=== PATIENT | male | born 1970 | race Caucasian/White ===

== ENCOUNTER 2020-08-12 07:34 | Inpatient (IN) ==
[2020-08-12] MEDS ORDERED: LR 1000 ML IV 1,000 ML IV ONE (07:41)
[2020-08-12] MEDS ORDERED: ANCEF 1 GRAM IV PREMIX* 2 G/100 ML BAG IV ONE (07:42)
[2020-08-12] MEDS ORDERED: DECADRON INJ ONE ×2 (07:52→08:45)
[2020-08-12] MEDS ORDERED: TORADOL 30 MG VIAL ONE ×3 (07:52→08:45)
[2020-08-12] MEDS ORDERED: FENTANYL INJ 100 mcg ONE ×2 (07:52→09:16)
[2020-08-12] MEDS ORDERED: NS 1000 ML 1,000 ML ONE ×3 (07:53→12:24)
[2020-08-12] MEDS ORDERED: ZEMURON 50 MG VIAL ONE (07:53)
[2020-08-12] MEDS ORDERED: OFIRMEV IV 1000 MG VIAL 1,000 MG/100 ML VIAL IV ONE (07:53)
[2020-08-12 08:11] VITALS: BMI 50.1
[2020-08-12] MEDS ORDERED: POLYMYXIN B SULFATE ONE (08:12)
[2020-08-12] MEDS ORDERED: ZOFRAN INJ 4 MG VIAL ONE (08:45)
[2020-08-12] MEDS ORDERED: XYLOCAINE 1 % (PLAIN) ONE (08:45)
[2020-08-12] MEDS ORDERED: NEO-SYNEPHRINE INJ ONE (08:45)
[2020-08-12] MEDS ORDERED: ULTANE GAS IN ONE (08:45)
[2020-08-12] MEDS ORDERED: QUELICIN (OR ANECTINE) ONE (08:45)
[2020-08-12] MEDS ORDERED: ROBINUL ONE (08:45)
[2020-08-12] MEDS ORDERED: NORCURON INJ 10 MG VIAL ONE (08:45)
[2020-08-12] MEDS ORDERED: VERSED ONE (08:45)
[2020-08-12] MEDS ORDERED: EPHEDRINE SULFATE INJ ONE (08:45)
[2020-08-12] MEDS ORDERED: DIPRIVAN VIAL ONE (08:45)
[2020-08-12] MEDS ORDERED: NEOSTIGMINE INJ ONE (08:45)
[2020-08-12] MEDS ORDERED: NS 100 ML IV 100 ML IV ONE (09:38)
[2020-08-12] MEDS ORDERED: ZOSYN VIAL 3.375 GRAMS IV ONE (09:38)
[2020-08-12] MEDS ORDERED: DILAUDID INJ IVP PRN ×2 (12:10→12:19)
[2020-08-12] MEDS: D5 1/2 NS 1000 ML 1,000 ML IV SCH ×2 (12:11→19:41)
[2020-08-12] MEDS ORDERED: PHENERGAN INJ 25 MG IM PRN (12:19)
[2020-08-12] MEDS ORDERED: REGLAN INJ 10 MG VIAL IVP PRN (12:19)
[2020-08-12] MEDS ORDERED: ZOFRAN INJ 4 MG VIAL IVP PRN ×2 (12:19→14:30)
[2020-08-12] MEDS ORDERED: BENADRYL INJ 50 MG VIAL IVP PRN (12:19)
[2020-08-12 12:59] LABS: ALANINE AMINOTRANSFERASE 46 Units/L (12-78); ALBUMIN 3.6 g/dL (3.4-5.0); ALKALINE PHOSPHATASE 59 Units/L (46-116); ASPARTATE AMINO TRANSFERASE 26 Units/L (15-37); BLOOD UREA NITROGEN 26 mg/dL (7-18); CALCIUM 8.6 mg/dL (8.5-10.1); CARBON DIOXIDE 24.3 mmol/L (21-32); CHLORIDE 101 mmol/L (98-107); COR NA(FOR HYPERGLY) 140 mmol/L (136-145); CREATININE 1.45 mg/dL (0.70-1.30); SODIUM 137 mmol/L (136-145); TOTAL PROTEIN 6.9 g/dL (6.4-8.2); eGFR NON BLACK RACES 55 (>60)
[2020-08-12] MEDS ORDERED: NS 500 ML IV 500 ML IV ONE (13:00)
[2020-08-12] MEDS ORDERED: ALBUMIN HUMAN 25%- 100 ML 100 ML IV ONE (13:00)
[2020-08-12] MEDS ORDERED: MORPHINE SULFATE INJ 2 MG INJ ONE (13:17)
[2020-08-12] MEDS ORDERED: MORPHINE SULFATE INJ 2 MG INJ IVP ONE (13:21)
[2020-08-12] MEDS ORDERED: MORPHINE SULFATE INJ 2 MG INJ IVP PRN (13:58)
[2020-08-12] MEDS ORDERED: DOPAMINE IV PREMIX 400 MG/250 ML 400 MG/250 ML BAG IV PRN (14:30)
[2020-08-12] MEDS: ANCEF VIAL 1 GRAM IVP SCH ×2 (15:21→22:10)
[2020-08-12 15:46] LABS: BASOPHILS # (AUTO) 0.1 X10^3/uL (0.0-0.1); BASOPHILS % (AUTO) 0.7 % (0.2-1.0); EOSINOPHILS # (AUTO) 0.1 x10^3/uL (0.0-0.2); EOSINOPHILS % (AUTO) 0.4 % (0.9-2.9); HEMATOCRIT 39.3 % (42.0-54.0); HEMOGLOBIN 12.6 g/dL (13.5-18.0); LYMPHOCYTES # (AUTO) 1.1 X10^3/uL (1.3-2.9); LYMPHOCYTES % (AUTO) 7.3 % (21.0-51.0); MEAN CORPUSCULAR HEMOGLOBIN 27.8 pg (27.0-34.0); MEAN CORPUSCULAR HGB CONC 32.2 g/dL (33.0-35.0); MEAN CORPUSCULAR VOLUME 86.5 fL (80.0-100.0); MEAN PLATELET VOLUME 8.2 fL (7.4-11.0); MONOCYTES # (AUTO) 0.2 x10^3/uL (0.3-0.8); MONOCYTES % (AUTO) 1.6 % (0.0-13.0); PLATELET COUNT 374 X10^3/uL (150.0-450.0); RED BLOOD COUNT 4.54 X10^6/uL (4.7-6.0); RED CELL DISTRIBUTION WIDTH 13.6 % (11.6-16.5); WHITE BLOOD COUNT 15.6 X10^3/uL (3.6-10.0)
[2020-08-12] MEDS: DILAUDID INJ IVP PRN (20:33)
[2020-08-13] MEDS: D5 1/2 NS 1000 ML 1,000 ML IV SCH ×6 (02:16→20:47)
[2020-08-13] MEDS: ANCEF VIAL 1 GRAM IVP SCH ×3 (05:30→22:16)
[2020-08-13 06:14] LABS: BASOPHILS # (AUTO) 0.1 X10^3/uL (0.0-0.1); BASOPHILS % (AUTO) 0.5 % (0.2-1.0); EOSINOPHILS % (AUTO) 0.1 % (0.9-2.9); HEMATOCRIT 34.2 % (42.0-54.0); HEMOGLOBIN 11.3 g/dL (13.5-18.0); LYMPHOCYTES # (AUTO) 1.1 X10^3/uL (1.3-2.9); LYMPHOCYTES % (AUTO) 8.9 % (21.0-51.0); MEAN CORPUSCULAR HEMOGLOBIN 28.1 pg (27.0-34.0); MEAN CORPUSCULAR VOLUME 85.3 fL (80.0-100.0); MEAN PLATELET VOLUME 7.6 fL (7.4-11.0); MONOCYTES # (AUTO) 0.8 x10^3/uL (0.3-0.8); MONOCYTES % (AUTO) 6.9 % (0.0-13.0); NEUTROPHILS # (AUTO) 10.1 x10^3/uL (2.2-4.8); NEUTROPHILS % (AUTO) 83.6 % (42.0-75.0); PLATELET COUNT 283 X10^3/uL (150.0-450.0); RED BLOOD COUNT 4.01 X10^6/uL (4.7-6.0); RED CELL DISTRIBUTION WIDTH 13.6 % (11.6-16.5); WHITE BLOOD COUNT 12.1 X10^3/uL (3.6-10.0)
--- NOTE | 2020-08-13 06:17 | RAD ---
HISTORYDyspneaSTUDYChest AP [id number] is a nasogastric tube present. Its tip is not visible. Over penetrated chest and upper abdomen film was may be required to evaluate the location of the nasogastr ic tube tip. Heart size is accentuated by hypo inflation. It is likely within normal limits. The lung s are clear. No pleural effusions are identified. Bony thorax is unremarkable.IMPRESSIONLungs hypoinf lated but free of acute infiltratesNasogastric tube tip not visualized. Overpenetrated chest x-ray an d upper abdomen may be required to assess the location of the nasogastric tube tip.Electronically sig linsey by: RUPA SHARIF (Aug 13, 2020 06:15:33)
[2020-08-13 06:34] LABS: ALANINE AMINOTRANSFERASE 39 Units/L (12-78); ALBUMIN 3.1 g/dL (3.4-5.0); ALKALINE PHOSPHATASE 48 Units/L (46-116); ASPARTATE AMINO TRANSFERASE 21 Units/L (15-37); BLOOD UREA NITROGEN 27 mg/dL (7-18); CALCIUM 8.1 mg/dL (8.5-10.1); CARBON DIOXIDE 25.2 mmol/L (21-32); CHLORIDE 104 mmol/L (98-107); COR NA(FOR HYPERGLY) 140 mmol/L (136-145); CREATININE 1.18 mg/dL (0.70-1.30); SODIUM 139 mmol/L (136-145); TOTAL PROTEIN 6.3 g/dL (6.4-8.2); eGFR NON BLACK RACES > 60 (>60)
[2020-08-13 06:35] LABS: COR CA(FOR HYPOALB) 8.8 mg/dL (8.5-10.1)
[2020-08-13] MEDS: DILAUDID INJ IVP PRN ×4 (07:01→19:03)
[2020-08-13] MEDS: LOVENOX INJ 40 MG SYR SC SCH (09:32)
[2020-08-13] MEDS: PROTONIX INJ 40 MG VIAL IVP SCH (09:33)
--- NOTE | 2020-08-13 10:12 | DR.PROGNOT ---
Hospital Progress Notes - Progress Note for Day of: Progress Note Date: 08/13/20 - Chief Complaint Chief Complaint: having incisional pain . no nausea or vomiting . BP is stable . good urine out put . afebrile today . - Past Medical Family Social History Past Med/Fam/Surg Hx: No changes since H&P Allergies: Allergies No Known Drug Allergies Allergy (Verified 08/23/19 10:17) - Review Of Systems ROS: No change since H&P - Vital Signs Vital Signs: Temperature 98.5 F Pulse Rate [Left Radial] 91 Pulse Rate 96 Respiratory Rate 20 Blood Pressure [Left Arm] 131/64 Blood Pressure 128/58 O2 Sat by Pulse Oximetry 90 - Physical Exam Oriented: Normal Eyes: Normal Ear: Normal Nose: Normal Throat: Normal Cardiovascular: Normal : Normal GI:Auscultation: Decreased GI:Palpation: Normal GI: Tenderness: Diffuse (soft abdomen . with diffuse tenderness .. dressing intact ..) Mood Description: Calm Speech Pattern: Clear, Appropriate - Laboratory and Diagnostics Result Diagrams: 08/13/20 05:21 08/13/20 05:21 Labs: Laboratory WBC 12.1 X10^3/uL (3.6-10.0) H 08/13/20 05:21 RBC 4.01 X10^6/uL (4.7-6.0) L 08/13/20 05:21 Hgb 11.3 g/dL (13.5-18.0) L 08/13/20 05:21 Hct 34.2 % (42.0-54.0) L 08/13/20 05:21 MCV 85.3 fL (80.0-100.0) 08/13/20 05:21 MCH 28.1 pg (27.0-34.0) 08/13/20 05:21 MCHC 33.0 g/dL (33.0-35.0) 08/13/20 05:21 RDW 13.6 % (11.6-16.5) 08/13/20 05:21 Plt Count 283 X10^3/uL (150.0-450.0) 08/13/20 05:21 MPV 7.6 fL (7.4-11.0) 08/13/20 05:21 Neut % (Auto) 83.6 % (42.0-75.0) H 08/13/20 05:21 Lymph % (Auto) 8.9 % (21.0-51.0) L 08/13/20 05:21 [place] % (Auto) 6.9 % (0.0-13.0) 08/13/20 05:21 Eos % (Auto) 0.1 % (0.9-2.9) L 08/13/20 05:21 Baso % (Auto) 0.5 % (0.2-1.0) 08/13/20 05:21 Neut # (Auto) 10.1 x10^3/uL (2.2-4.8) H 08/13/20 05:21 Lymph # (Auto) 1.1 X10^3/uL (1.3-2.9) L 08/13/20 05:21 [place] # (Auto) 0.8 x10^3/uL (0.3-0.8) 08/13/20 05:21 Eos # (Auto) 0.0 x10^3/uL (0.0-0.2) 08/13/20 05:21 Baso # (Auto) 0.1 X10^3/uL (0.0-0.1) 08/13/20 05:21 Absolute Nucleated RBC 0.0 /100WBC 08/13/20 05:21 Sodium 139 mmol/L (136-145) 08/13/20 05:21 Corrected Sodium 140 mmol/L (136-145) 08/13/20 05:21 Potassium 4.4 mmol/L (3.5-5.1) 08/13/20 05:21 Chloride 104 mmol/L (98-107) 08/13/20 05:21 Carbon Dioxide 25.2 mmol/L (21-32) 08/13/20 05:21 BUN 27 mg/dL (7-18) H 08/13/20 05:21 Creatinine 1.18 mg/dL (0.70-1.30) 08/13/20 05:21 Est GFR (MDRD) Af Amer > 60 (>60) 08/13/20 05:21 Est GFR (MDRD) Non-Af > 60 (>60) 08/13/20 05:21 Glucose 136 mg/dL (65-99) H 08/13/20 05:21 Calcium 8.1 mg/dL (8.5-10.1) L 08/13/20 05:21 Corrected Calcium 8.8 mg/dL (8.5-10.1) 08/13/20 05:21 Total Bilirubin 0.30 mg/dL (0.2-1.0) 08/13/20 05:21 AST 21 Units/L (15-37) 08/13/20 05:21 ALT 39 Units/L (12-78) 08/13/20 05:21 Alkaline Phosphatase 48 Units/L (46-116) 08/13/20 05:21 Total Protein 6.3 g/dL (6.4-8.2) L 08/13/20 05:21 Albumin 3.1 g/dL (3.4-5.0) L 08/13/20 05:21 Globulin 3.2 g/dL (2.5-4.5) 08/13/20 05:21 Albumin/Globulin Ratio 1.0 Ratio (1.1-2.1) L 08/13/20 05:21 Tissue Pathology To follow 08/12/20 10:30 - Assessment and Plan 1: s/p laparotomy . lysis of adhesions , segmental small bowel resection . repair of incarcerated incisional hernias . morbid obesity . to d/c NGT and Abrams cath . only water . OOB , DVT prophylaxis .
[2020-08-13] MEDS ORDERED: NS 1000 ML 1,000 ML IV ONE (13:44)
[2020-08-13] MEDS: ZESTRIL TAB 10 MG PO SCH (14:38)
[2020-08-14] MEDS: DILAUDID INJ IVP PRN ×5 (01:17→21:03)
[2020-08-14] MEDS: D5 1/2 NS 1000 ML 1,000 ML IV SCH ×2 (01:26→05:10)
[2020-08-14 05:14] LABS: BASOPHILS % (AUTO) 0.5 % (0.2-1.0); EOSINOPHILS # (AUTO) 0.3 x10^3/uL (0.0-0.2); HEMATOCRIT 32.7 % (42.0-54.0); LYMPHOCYTES # (AUTO) 0.9 X10^3/uL (1.3-2.9); LYMPHOCYTES % (AUTO) 9.1 % (21.0-51.0); MEAN CORPUSCULAR HEMOGLOBIN 28.9 pg (27.0-34.0); MEAN CORPUSCULAR HGB CONC 33.6 g/dL (33.0-35.0); MEAN CORPUSCULAR VOLUME 85.9 fL (80.0-100.0); MEAN PLATELET VOLUME 7.5 fL (7.4-11.0); MONOCYTES # (AUTO) 0.6 x10^3/uL (0.3-0.8); MONOCYTES % (AUTO) 6.6 % (0.0-13.0); NEUTROPHILS # (AUTO) 7.9 x10^3/uL (2.2-4.8); NEUTROPHILS % (AUTO) 80.8 % (42.0-75.0); PLATELET COUNT 293 X10^3/uL (150.0-450.0); RED CELL DISTRIBUTION WIDTH 13.7 % (11.6-16.5); WHITE BLOOD COUNT 9.7 X10^3/uL (3.6-10.0)
[2020-08-14 05:29] LABS: ALANINE AMINOTRANSFERASE 34 Units/L (12-78); ALBUMIN 2.9 g/dL (3.4-5.0); ALKALINE PHOSPHATASE 53 Units/L (46-116); ASPARTATE AMINO TRANSFERASE 16 Units/L (15-37); BLOOD UREA NITROGEN 19 mg/dL (7-18); CALCIUM 8.3 mg/dL (8.5-10.1); CARBON DIOXIDE 28.5 mmol/L (21-32); CHLORIDE 103 mmol/L (98-107); COR CA(FOR HYPOALB) 9.2 mg/dL (8.5-10.1); COR NA(FOR HYPERGLY) 141 mmol/L (136-145); CREATININE 0.87 mg/dL (0.70-1.30); SODIUM 140 mmol/L (136-145); TOTAL PROTEIN 6.3 g/dL (6.4-8.2); eGFR NON BLACK RACES > 60 (>60)
[2020-08-14] MEDS: ANCEF VIAL 1 GRAM IVP SCH ×3 (05:40→21:05)
[2020-08-14] MEDS: MILK OF MAGNESIA PO SCH (09:17)
[2020-08-14] MEDS: ZESTRIL TAB 10 MG PO SCH (09:17)
[2020-08-14] MEDS: PROTONIX INJ 40 MG VIAL IVP SCH (09:18)
[2020-08-14] MEDS: LOVENOX INJ 40 MG SYR SC SCH (09:26)
[2020-08-14] MEDS: LR 1000 ML IV 1,000 ML IV SCH ×3 (10:15→19:23)
[2020-08-14] MEDS: NORVASC TAB 5 MG PO SCH (10:15)
--- NOTE | 2020-08-14 14:41 | DR.PROGNOT ---
Hospital Progress Notes - Progress Note for Day of: Progress Note Date: 08/14/20 - Chief Complaint Chief Complaint: having incisional pain . no nausea or vomiting . BP is stable . good urine out put . afebrile today . - Past Medical Family Social History Past Med/Fam/Surg Hx: No changes since H&P Allergies: Allergies No Known Drug Allergies Allergy (Verified 08/23/19 10:17) - Review Of Systems ROS: No change since H&P - Vital Signs Vital Signs: Temperature 97.1 F Pulse Rate [Left Radial] 78 Pulse Rate 96 Respiratory Rate 20 Blood Pressure [Left Arm] 168/78 Blood Pressure 128/58 O2 Sat by Pulse Oximetry 100 - Physical Exam Oriented: Normal Eyes: Normal Ear: Normal Nose: Normal Throat: Normal Cardiovascular: Normal : Normal GI:Auscultation: Decreased GI:Palpation: Normal GI: Tenderness: Diffuse (soft abdomen . with diffuse tenderness .. dressing intact ..) Mood Description: Calm Speech Pattern: Clear, Appropriate - Laboratory and Diagnostics Result Diagrams: 08/14/20 04:00 08/14/20 04:00 Labs: Laboratory WBC 9.7 X10^3/uL (3.6-10.0) 08/14/20 04:00 RBC 3.80 X10^6/uL (4.7-6.0) L 08/14/20 04:00 Hgb 11.0 g/dL (13.5-18.0) L 08/14/20 04:00 Hct 32.7 % (42.0-54.0) L 08/14/20 04:00 MCV 85.9 fL (80.0-100.0) 08/14/20 04:00 MCH 28.9 pg (27.0-34.0) 08/14/20 04:00 MCHC 33.6 g/dL (33.0-35.0) 08/14/20 04:00 RDW 13.7 % (11.6-16.5) 08/14/20 04:00 Plt Count 293 X10^3/uL (150.0-450.0) 08/14/20 04:00 MPV 7.5 fL (7.4-11.0) 08/14/20 04:00 Neut % (Auto) 80.8 % (42.0-75.0) H 08/14/20 04:00 Lymph % (Auto) 9.1 % (21.0-51.0) L 08/14/20 04:00 [place] % (Auto) 6.6 % (0.0-13.0) 08/14/20 04:00 Eos % (Auto) 3.0 % (0.9-2.9) H 08/14/20 04:00 Baso % (Auto) 0.5 % (0.2-1.0) 08/14/20 04:00 Neut # (Auto) 7.9 x10^3/uL (2.2-4.8) H 08/14/20 04:00 Lymph # (Auto) 0.9 X10^3/uL (1.3-2.9) L 08/14/20 04:00 [place] # (Auto) 0.6 x10^3/uL (0.3-0.8) 08/14/20 04:00 Eos # (Auto) 0.3 x10^3/uL (0.0-0.2) H 08/14/20 04:00 Baso # (Auto) 0.0 X10^3/uL (0.0-0.1) 08/14/20 04:00 Absolute Nucleated RBC 0.0 /100WBC 08/14/20 04:00 Sodium 140 mmol/L (136-145) 08/14/20 04:00 Corrected Sodium 141 mmol/L (136-145) 08/14/20 04:00 Potassium 4.2 mmol/L (3.5-5.1) 08/14/20 04:00 Chloride 103 mmol/L (98-107) 08/14/20 04:00 Carbon Dioxide 28.5 mmol/L (21-32) 08/14/20 04:00 BUN 19 mg/dL (7-18) H 08/14/20 04:00 Creatinine 0.87 mg/dL (0.70-1.30) 08/14/20 04:00 Est GFR (MDRD) Af Amer > 60 (>60) 08/14/20 04:00 Est GFR (MDRD) Non-Af > 60 (>60) 08/14/20 04:00 Glucose 135 mg/dL (65-99) H 08/14/20 04:00 Calcium 8.3 mg/dL (8.5-10.1) L 08/14/20 04:00 Corrected Calcium 9.2 mg/dL (8.5-10.1) 08/14/20 04:00 Total Bilirubin 0.50 mg/dL (0.2-1.0) 08/14/20 04:00 AST 16 Units/L (15-37) 08/14/20 04:00 ALT 34 Units/L (12-78) 08/14/20 04:00 Alkaline Phosphatase 53 Units/L (46-116) 08/14/20 04:00 Total Protein 6.3 g/dL (6.4-8.2) L 08/14/20 04:00 Albumin 2.9 g/dL (3.4-5.0) L 08/14/20 04:00 Globulin 3.4 g/dL (2.5-4.5) 08/14/20 04:00 Albumin/Globulin Ratio 0.9 Ratio (1.1-2.1) L 08/14/20 04:00 Tissue Pathology To follow 08/12/20 10:30 - Assessment and Plan 1: s/p laparotomy . lysis of adhesions , segmental small bowel resection . repair of incarcerated incisional hernias . morbid obesity . toadvance diet . ambulate .
[2020-08-14] MEDS: COLACE CAP 100 MG PO SCH (21:00)
[2020-08-15] MEDS: LR 1000 ML IV 1,000 ML IV SCH ×3 (03:25→18:23)
[2020-08-15] MEDS: DILAUDID INJ IVP PRN ×2 (03:25→09:18)
[2020-08-15] MEDS: ANCEF VIAL 1 GRAM IVP SCH (05:11)
[2020-08-15 06:33] LABS: BASOPHILS % (AUTO) 0.6 % (0.2-1.0); EOSINOPHILS # (AUTO) 0.3 x10^3/uL (0.0-0.2); EOSINOPHILS % (AUTO) 3.6 % (0.9-2.9); HEMATOCRIT 30.6 % (42.0-54.0); HEMOGLOBIN 10.4 g/dL (13.5-18.0); LYMPHOCYTES # (AUTO) 0.9 X10^3/uL (1.3-2.9); LYMPHOCYTES % (AUTO) 11.8 % (21.0-51.0); MEAN CORPUSCULAR HEMOGLOBIN 29.1 pg (27.0-34.0); MEAN CORPUSCULAR VOLUME 85.7 fL (80.0-100.0); MEAN PLATELET VOLUME 7.4 fL (7.4-11.0); MONOCYTES # (AUTO) 0.5 x10^3/uL (0.3-0.8); MONOCYTES % (AUTO) 6.7 % (0.0-13.0); NEUTROPHILS # (AUTO) 6.2 x10^3/uL (2.2-4.8); NEUTROPHILS % (AUTO) 77.3 % (42.0-75.0); PLATELET COUNT 282 X10^3/uL (150.0-450.0); RED BLOOD COUNT 3.57 X10^6/uL (4.7-6.0); RED CELL DISTRIBUTION WIDTH 13.5 % (11.6-16.5)
[2020-08-15 06:48] LABS: ALANINE AMINOTRANSFERASE 35 Units/L (12-78); ALBUMIN 2.7 g/dL (3.4-5.0); ALKALINE PHOSPHATASE 52 Units/L (46-116); ASPARTATE AMINO TRANSFERASE 21 Units/L (15-37); BLOOD UREA NITROGEN 12 mg/dL (7-18); CALCIUM 8.8 mg/dL (8.5-10.1); CARBON DIOXIDE 30.3 mmol/L (21-32); CHLORIDE 100 mmol/L (98-107); COR CA(FOR HYPOALB) 9.8 mg/dL (8.5-10.1); COR NA(FOR HYPERGLY) 139 mmol/L (136-145); CREATININE 0.88 mg/dL (0.70-1.30); SODIUM 137 mmol/L (136-145); TOTAL PROTEIN 6.2 g/dL (6.4-8.2); eGFR NON BLACK RACES > 60 (>60)
[2020-08-15] MEDS ORDERED: LINZESS PO SCH (09:00)
[2020-08-15] MEDS: LOVENOX INJ 40 MG SYR SC SCH (09:17)
[2020-08-15] MEDS: PROTONIX INJ 40 MG VIAL IVP SCH (09:18)
[2020-08-15] MEDS: ZESTRIL TAB 10 MG PO SCH (09:19)
[2020-08-15] MEDS: MILK OF MAGNESIA PO SCH (09:19)
[2020-08-15] MEDS: NORVASC TAB 5 MG PO SCH (09:20)
--- NOTE | 2020-08-15 11:47 | PCM.PROG ---
Progress Note Progress Note for Day of Date of Exam: 08/15/20 Subjective Subjective: Pt is a 49 year old male admitted for incarcerated incisional hernia s/p laparotomy, lysis of adhesions, segmental small bowel resection, repair of incarcerated hernia. Pt is followed by general surgery. This morning he is resting comfortably in bed, no acute events overnight. Labs/imaging: Wbc 8.0, Hgb 10.4, Plt 282, Na 139, K 4.1, Creatinine 0.88, Glucose 190. Pt is recovering well. Will continue to advance diet as tolerated. Follow up Dr Bingham's recommendations and plans for when patient is able to be discharged. Continue to monitor and follow up labs in the morning. Past Medical Family Social History Past Med/Fam/Surg Hx: No changes since H&P Allergies: Allergies No Known Drug Allergies Allergy (Verified 08/23/19 10:17) Review of Systems ROS: No change since H&P Vital Signs and I&O's Vital Signs: Temperature 98.7 F Pulse Rate [Left Radial] 89 Pulse Rate 103 Respiratory Rate 20 Blood Pressure [Left Arm] 149/69 Blood Pressure 128/58 O2 Sat by Pulse Oximetry 99 Intake and Output: Intake & Output 08/12/20 08/13/20 08/14/20 08/15/20 23:59 23:59 23:59 23:59 Intake Total 3361 / 3361 0 / 0 6352 / 6352 1440 / 1440 Output Total 1900 / 1900 1800 / 1800 2400 / 2400 1200 / 1200 Balance 1461 / 1461 -1800 / -1800 3952 / 3952 240 / 240 Physical Exam Oriented: Normal Eyes: Normal Ear: Normal Nose: Normal Throat: Normal Respiratory: Normal Cardiovascular: Normal : Normal Auscultation: Bowel Sounds: Decreased Tenderness: Diffuse (soft abdomen . with diffuse tenderness .. dressing intact ..) Mood Description: Calm Speech Pattern: Clear and Appropriate Laboratory and Diagnostics Result Diagrams: 08/15/20 06:06 08/15/20 06:06 Labs: Laboratory WBC 8.0 X10^3/uL (3.6-10.0) 08/15/20 06:06 RBC 3.57 X10^6/uL (4.7-6.0) L 08/15/20 06:06 Hgb 10.4 g/dL (13.5-18.0) L 08/15/20 06:06 Hct 30.6 % (42.0-54.0) L 08/15/20 06:06 MCV 85.7 fL (80.0-100.0) 08/15/20 06:06 MCH 29.1 pg (27.0-34.0) 08/15/20 06:06 MCHC 34.0 g/dL (33.0-35.0) 08/15/20 06:06 RDW 13.5 % (11.6-16.5) 08/15/20 06:06 Plt Count 282 X10^3/uL (150.0-450.0) 08/15/20 06:06 MPV 7.4 fL (7.4-11.0) 08/15/20 06:06 Neut % (Auto) 77.3 % (42.0-75.0) H 08/15/20 06:06 Lymph % (Auto) 11.8 % (21.0-51.0) L 08/15/20 06:06 [place] % (Auto) 6.7 % (0.0-13.0) 08/15/20 06:06 Eos % (Auto) 3.6 % (0.9-2.9) H 08/15/20 06:06 Baso % (Auto) 0.6 % (0.2-1.0) 08/15/20 06:06 Neut # (Auto) 6.2 x10^3/uL (2.2-4.8) H 08/15/20 06:06 Lymph # (Auto) 0.9 X10^3/uL (1.3-2.9) L 08/15/20 06:06 [place] # (Auto) 0.5 x10^3/uL (0.3-0.8) 08/15/20 06:06 Eos # (Auto) 0.3 x10^3/uL (0.0-0.2) H 08/15/20 06:06 Baso # (Auto) 0.0 X10^3/uL (0.0-0.1) 08/15/20 06:06 Absolute Nucleated RBC 0.0 /100WBC 08/15/20 06:06 Sodium 137 mmol/L (136-145) 08/15/20 06:06 Corrected Sodium 139 mmol/L (136-145) 08/15/20 06:06 Potassium 4.1 mmol/L (3.5-5.1) 08/15/20 06:06 Chloride 100 mmol/L (98-107) 08/15/20 06:06 Carbon Dioxide 30.3 mmol/L (21-32) 08/15/20 06:06 BUN 12 mg/dL (7-18) 08/15/20 06:06 Creatinine 0.88 mg/dL (0.70-1.30) 08/15/20 06:06 Est GFR (MDRD) Af Amer > 60 (>60) 08/15/20 06:06 Est GFR (MDRD) Non-Af > 60 (>60) 08/15/20 06:06 Glucose 190 mg/dL (65-99) H 08/15/20 06:06 Calcium 8.8 mg/dL (8.5-10.1) 08/15/20 06:06 Corrected Calcium 9.8 mg/dL (8.5-10.1) 08/15/20 06:06 Total Bilirubin 0.30 mg/dL (0.2-1.0) 08/15/20 06:06 AST 21 Units/L (15-37) 08/15/20 06:06 ALT 35 Units/L (12-78) 08/15/20 06:06 Alkaline Phosphatase 52 Units/L (46-116) 08/15/20 06:06 Total Protein 6.2 g/dL (6.4-8.2) L 08/15/20 06:06 Albumin 2.7 g/dL (3.4-5.0) L 08/15/20 06:06 Globulin 3.5 g/dL (2.5-4.5) 08/15/20 06:06 Albumin/Globulin Ratio 0.8 Ratio (1.1-2.1) L 08/15/20 06:06 Tissue Pathology To follow 08/12/20 10:30
--- NOTE | 2020-08-15 12:16 | DR.PROGNOT ---
Hospital Progress Notes - Progress Note for Day of: Progress Note Date: 08/15/20 - Chief Complaint Chief Complaint: tolerating diet well . no nausea or vomiting . BP is stable . good urine out put . afebrile today . dressong was changed , clean incision . no infection . - Past Medical Family Social History Past Med/Fam/Surg Hx: No changes since H&P Allergies: Allergies No Known Drug Allergies Allergy (Verified 08/23/19 10:17) - Review Of Systems ROS: No change since H&P - Vital Signs Vital Signs: Temperature 98.7 F Pulse Rate [Left Radial] 89 Pulse Rate 103 Respiratory Rate 20 Blood Pressure [Left Arm] 149/69 Blood Pressure 128/58 O2 Sat by Pulse Oximetry 99 - Physical Exam Oriented: Normal Eyes: Normal Ear: Normal Nose: Normal Throat: Normal Respiratory: Normal Cardiovascular: Normal : Normal GI:Auscultation: Decreased GI:Palpation: Normal GI: Tenderness: Diffuse (soft, flat abdomen . no wound infection . BS+) Mood Description: Calm Speech Pattern: Clear, Appropriate - Laboratory and Diagnostics Result Diagrams: 08/15/20 06:06 08/15/20 06:06 Labs: Laboratory WBC 8.0 X10^3/uL (3.6-10.0) 08/15/20 06:06 RBC 3.57 X10^6/uL (4.7-6.0) L 08/15/20 06:06 Hgb 10.4 g/dL (13.5-18.0) L 08/15/20 06:06 Hct 30.6 % (42.0-54.0) L 08/15/20 06:06 MCV 85.7 fL (80.0-100.0) 08/15/20 06:06 MCH 29.1 pg (27.0-34.0) 08/15/20 06:06 MCHC 34.0 g/dL (33.0-35.0) 08/15/20 06:06 RDW 13.5 % (11.6-16.5) 08/15/20 06:06 Plt Count 282 X10^3/uL (150.0-450.0) 08/15/20 06:06 MPV 7.4 fL (7.4-11.0) 08/15/20 06:06 Neut % (Auto) 77.3 % (42.0-75.0) H 08/15/20 06:06 Lymph % (Auto) 11.8 % (21.0-51.0) L 08/15/20 06:06 [place] % (Auto) 6.7 % (0.0-13.0) 08/15/20 06:06 Eos % (Auto) 3.6 % (0.9-2.9) H 08/15/20 06:06 Baso % (Auto) 0.6 % (0.2-1.0) 08/15/20 06:06 Neut # (Auto) 6.2 x10^3/uL (2.2-4.8) H 08/15/20 06:06 Lymph # (Auto) 0.9 X10^3/uL (1.3-2.9) L 08/15/20 06:06 [place] # (Auto) 0.5 x10^3/uL (0.3-0.8) 08/15/20 06:06 Eos # (Auto) 0.3 x10^3/uL (0.0-0.2) H 08/15/20 06:06 Baso # (Auto) 0.0 X10^3/uL (0.0-0.1) 08/15/20 06:06 Absolute Nucleated RBC 0.0 /100WBC 08/15/20 06:06 Sodium 137 mmol/L (136-145) 08/15/20 06:06 Corrected Sodium 139 mmol/L (136-145) 08/15/20 06:06 Potassium 4.1 mmol/L (3.5-5.1) 08/15/20 06:06 Chloride 100 mmol/L (98-107) 08/15/20 06:06 Carbon Dioxide 30.3 mmol/L (21-32) 08/15/20 06:06 BUN 12 mg/dL (7-18) 08/15/20 06:06 Creatinine 0.88 mg/dL (0.70-1.30) 08/15/20 06:06 Est GFR (MDRD) Af Amer > 60 (>60) 08/15/20 06:06 Est GFR (MDRD) Non-Af > 60 (>60) 08/15/20 06:06 Glucose 190 mg/dL (65-99) H 08/15/20 06:06 Calcium 8.8 mg/dL (8.5-10.1) 08/15/20 06:06 Corrected Calcium 9.8 mg/dL (8.5-10.1) 08/15/20 06:06 Total Bilirubin 0.30 mg/dL (0.2-1.0) 08/15/20 06:06 AST 21 Units/L (15-37) 08/15/20 06:06 ALT 35 Units/L (12-78) 08/15/20 06:06 Alkaline Phosphatase 52 Units/L (46-116) 08/15/20 06:06 Total Protein 6.2 g/dL (6.4-8.2) L 08/15/20 06:06 Albumin 2.7 g/dL (3.4-5.0) L 08/15/20 06:06 Globulin 3.5 g/dL (2.5-4.5) 08/15/20 06:06 Albumin/Globulin Ratio 0.8 Ratio (1.1-2.1) L 08/15/20 06:06 Tissue Pathology To follow 08/12/20 10:30 - Assessment and Plan 1: s/p laparotomy . lysis of adhesions , segmental small bowel resection . repair of incarcerated incisional hernias . morbid obesity . to advance diet . ambulate . d/c in am and follow in 2 weeks .
[2020-08-15] MEDS ORDERED: DILAUDID INJ IVP PRN (14:37)
[2020-08-15] MEDS: COLACE CAP 100 MG PO SCH (21:40)
[2020-08-16] MEDS: PERCOCET TAB 5/325 MG PO PRN ×2 (02:04→08:16)
[2020-08-16] MEDS: LR 1000 ML IV 1,000 ML IV SCH ×2 (05:55→10:04)
[2020-08-16 06:40] LABS: BASOPHILS % (AUTO) 0.5 % (0.2-1.0); EOSINOPHILS # (AUTO) 0.4 x10^3/uL (0.0-0.2); EOSINOPHILS % (AUTO) 4.8 % (0.9-2.9); HEMATOCRIT 32.5 % (42.0-54.0); HEMOGLOBIN 10.9 g/dL (13.5-18.0); LYMPHOCYTES # (AUTO) 1.3 X10^3/uL (1.3-2.9); LYMPHOCYTES % (AUTO) 17.1 % (21.0-51.0); MEAN CORPUSCULAR HEMOGLOBIN 28.5 pg (27.0-34.0); MEAN CORPUSCULAR HGB CONC 33.5 g/dL (33.0-35.0); MEAN CORPUSCULAR VOLUME 84.9 fL (80.0-100.0); MEAN PLATELET VOLUME 7.6 fL (7.4-11.0); MONOCYTES # (AUTO) 0.5 x10^3/uL (0.3-0.8); MONOCYTES % (AUTO) 6.9 % (0.0-13.0); NEUTROPHILS # (AUTO) 5.2 x10^3/uL (2.2-4.8); NEUTROPHILS % (AUTO) 70.7 % (42.0-75.0); PLATELET COUNT 320 X10^3/uL (150.0-450.0); RED BLOOD COUNT 3.83 X10^6/uL (4.7-6.0); RED CELL DISTRIBUTION WIDTH 13.2 % (11.6-16.5); WHITE BLOOD COUNT 7.4 X10^3/uL (3.6-10.0)
[2020-08-16 07:12] LABS: BLOOD UREA NITROGEN 10 mg/dL (7-18); CALCIUM 9.2 mg/dL (8.5-10.1); CARBON DIOXIDE 36.1 mmol/L (21-32); CHLORIDE 102 mmol/L (98-107); CREATININE 0.66 mg/dL (0.70-1.30); SODIUM 140 mmol/L (136-145); eGFR NON BLACK RACES > 60 (>60)
[2020-08-16] MEDS: LOVENOX INJ 40 MG SYR SC SCH (08:15)
[2020-08-16] MEDS: MILK OF MAGNESIA PO SCH (08:16)
[2020-08-16] MEDS: PROTONIX INJ 40 MG VIAL IVP SCH (08:16)
[2020-08-16] MEDS: NORVASC TAB 5 MG PO SCH (08:16)
[2020-08-16] MEDS: ZESTRIL TAB 10 MG PO SCH (08:16)
[2020-08-16 09:08] VITALS: BP 173/83
== END 2020-08-16 10:10 | disposition home or self-care (01) | DRG 345 ==
LOC: SURG1 07:34 → MED/SURG 14:20
PROVIDERS: ADMIT Surgery; ATTEND Surgery

== ENCOUNTER 2023-07-03 04:39 | Inpatient (IN) ==
[2023-07-03 04:54] VITALS: BMI 48.4
--- NOTE | 2023-07-03 05:03 | EKG ---
Test Reason : Shortness of Breath Blood Pressure : */* mmHG Vent. Rate : 89 BPM Atrial Rate : 89 BPM P-R Int : 150 ms QRS Dur : 106 ms QT Int : 378 ms P-R-T Axes : 48 -15 57 degrees QTc Int : 459 ms Normal sinus rhythm Low voltage QRS Borderline ECG No previous ECGs available Confirmed by Moustapha León ([id number]) on 07/04/2023 7:27:33 AM Referred By: Confirmed By: Moustapha León
[2023-07-03 05:10] LABS: ABG ALLEN TEST POS; ABG BASE EXCESS -3.5 mmol/L (-2.0-2.0); ABG HCO3 22.1 mmol/L (22-26)
--- NOTE | 2023-07-03 05:16 | DR.N/VMALE ---
HPI Time Seen Time Seen by Provider: 07/03/23 05:15 Primary Care Physician Primary Care Physician: lenard Lopez Chief Complaint Doctors Comments: Patient has h/o abdominal hernia repair x 3. He has 2 ventral hernias and has been having abdl pain for several days. In the past 12 hrs he had constant n,v,d. Patient presents because of weakness. Patient also states that he feels sob.Patient denies: fever,hematemesis,hematochezia,cough,pleuritic pain,back pain. Chief Complaint:: pt ambulated to room 1 pt c/o n/v/d x 12 hours pt states" I'm just sick I'm puking and using the bathroom I feel so weak" Source History Provided: Patient Mode of Arrival Mode of Arrival: Ambulatory Timing Onset of Chief Complaint: 07/02/23 PMH PMH Past Medical History: Yes Past Medical History: Anxiety, CHF, Diabetes, Dyslipidemia and Hypertension Past Surgical History: Yes Surgical History: Other Past Surgical History Comment: hernia Family History History of Family Medical Conditions: Yes Family Medical History: Diabetes Mellitus, [place], Coronary Artery Disease and Hypertension Social History Does any household member use tobacco: No Alcohol Use: None Do you use any recreational Drugs:: No Lives With: Family Lives Where: Home Infectious screening In the last 2 months have you had wt loss of >10#?: NO Have you had fever, night sweats or hemotysis?: No Have you traveled outside the country in the last 6 months?: No Isolation: Standard ROS Review of Systems Constitutional: No Symptoms Reported Eyes: No Symptoms Reported ENTM: No Symptoms Reported Respiratoy: No Symptoms Reported Cardiovascular: No Symptoms Reported Gastrointestinal/Abdominal: Abdominal Pain (BLQ), Diarrhea, Nausea and Vomiting Genitourinary: No Symptoms Reported Neurological: Weakness Musculoskeletal: No Symptoms Reported Integumentary: No Symptoms Reported Hematologic/Lymphatic: No Symptoms Reported Endocrine: No Symptoms Reported Psychiatric: No Symptoms Reported All Other Systems: Reviewed and Negative PE Vital Signs Vitals: Vital Signs Temperature 98.2 F Pulse Rate 88 Pulse Rate 88 Pulse Rate 88 Pulse Rate 95 Pulse Rate 91 Pulse Rate 92 Pulse Rate 90 Pulse Rate 89 Pulse Rate 84 Respiratory Rate 20 Respiratory Rate 20 Respiratory Rate 20 Blood Pressure 137/61 Blood Pressure 154/67 Blood Pressure 160/73 O2 Sat by Pulse Oximetry 94 O2 Sat by Pulse Oximetry 93 O2 Sat by Pulse Oximetry 94 O2 Sat by Pulse Oximetry 96 O2 Sat by Pulse Oximetry 93 O2 Sat by Pulse Oximetry 94 O2 Sat by Pulse Oximetry 93 O2 Sat by Pulse Oximetry 95 O2 Sat by Pulse Oximetry 97 General Limitations: No Limitations General Appearance: Alert and In No Apparent Distress Head Head Exam: Normal Inspection Eyes Eye exam: Normal Appearance ENT ENT Exam: Normal Exam Neck Neck Exam: Normal Inspection Chest Chest Inspection: Normal Inspection Respiratory Respiratory Exam: Normal Lung Sounds Bilat Respiratory Exam: Bilateral: Clear to Auscultation Cardiovascular Cardiovascular Exam: Regular Rate and Normal Rhythm Abdominal Exam Abdominal Exam: Normal Inspection, Soft, Tenderness (BLQ) and Hypoactive Bowel Sounds; negative Distention, Guarding or Rebound Rectal Rectal Exam: Deferred Exam: Male: Deferred Extremities Extremities Exam: Normal Inspection Back Back Exam: Normal Inspection Neurologic Neurological Exam: Alert and Oriented X3 Psychiatric Psychiatric Exam: Normal Affect and Normal Mood Skin Skin Exam: Warm, Dry, Intact and Normal Color MDM Differential Diagnosis Differential Diagnosis: Considerations may Include:: Bowel Obstruction, Inflammatory BD and Pancreatitis Differential Diagnosis Comment: Bowel perforation,bowel ischemia,electrolyte disorder COURSE Treatment Treatment: Patient was brought to an exam room. IV access was initiated and patient received Zosyn 4.5 g iv 4 white count of 18.2. Patient was given Dilaudid 1 mg IV and Zofran 4 mg IV for pain. Patient's abdomen pelvis CT with contrast revealed a ventral hernia, small bowel obstruction, probable st rangulation, probable incarceration. The radiologist called to give me the CT scan report. Discussed case with patient's general surgeon Dr. Troy. Dr. Troy will admit the patient to his service and evaluated the patient in the ER this morning. ROR Labs Reviewed Laboratory Results Reviewed?: Yes 07/03/23 04:50 07/03/23 04:50 Laboratory: WBC 18.2 X10^3/uL (3.6-10.0) H 07/03/23 04:50 RBC 5.15 X10^6/uL (4.7-6.0) 07/03/23 04:50 Hgb 14.6 g/dL (13.5-18.0) 07/03/23 04:50 Hct 44.6 % (42.0-54.0) 07/03/23 04:50 MCV 86.6 fL (80.0-100.0) 07/03/23 04:50 MCH 28.3 pg (27.0-34.0) 07/03/23 04:50 MCHC 32.7 g/dL (33.0-35.0) L 07/03/23 04:50 RDW 13.1 % (11.6-16.5) 07/03/23 04:50 Plt Count 365 X10^3/uL (150.0-450.0) 07/03/23 04:50 MPV 7.6 fL (7.4-11.0) 07/03/23 04:50 Neut % (Auto) 88.4 % (42.0-75.0) H 07/03/23 04:50 Lymph % (Auto) 3.9 % (21.0-51.0) L 07/03/23 04:50 [place] % (Auto) 6.6 % (0.0-13.0) 07/03/23 04:50 Eos % (Auto) 0.7 % (0.9-2.9) L 07/03/23 04:50 Baso % (Auto) 0.4 % (0.2-1.0) 07/03/23 04:50 Neut # (Auto) 16.1 x10^3/uL (2.2-4.8) H 07/03/23 04:50 Lymph # (Auto) 0.7 X10^3/uL (1.3-2.9) L 07/03/23 04:50 [place] # (Auto) 1.2 x10^3/uL (0.3-0.8) H 07/03/23 04:50 Eos # (Auto) 0.1 x10^3/uL (0.0-0.2) 07/03/23 04:50 Baso # (Auto) 0.1 X10^3/uL (0.0-0.1) 07/03/23 04:50 Absolute Nucleated RBC 0.0 /100WBC 07/03/23 04:50 D-Dimer 0.35 ug/ml (0.0-0.57) 07/03/23 04:50 Sample Site Lr 07/03/23 05:05 ABG pH 7.340 (7.35-7.45) L 07/03/23 05:05 ABG pCO2 41.0 mmHg (35.0-45.0) 07/03/23 05:05 ABG pO2 82.0 mmHg (80.0-100.0) 07/03/23 05:05 ABG HCO3 22.1 mmol/L (22-26) 07/03/23 05:05 ABG O2 Saturation 95.0 % (90-100) 07/03/23 05:05 ABG Base Excess -3.5 mmol/L (-2.0-2.0) L 07/03/23 05:05 Kaden Test Pos 07/03/23 05:05 A-a Gradient 16.0 mmHg 07/03/23 05:05 FiO2 21.0 07/03/23 05:05 Blood Gas Comments Davi well ae 07/03/23 05:05 Sodium 137 mmol/L (136-145) 07/03/23 04:50 Corrected Sodium 138 mmol/L (136-145) 07/03/23 04:50 Potassium 3.9 mmol/L (3.5-5.1) 07/03/23 04:50 Chloride 102 mmol/L (98-107) 07/03/23 04:50 Carbon Dioxide 24.1 mmol/L (21-32) 07/03/23 04:50 BUN 24 mg/dL (7-18) H 07/03/23 04:50 Creatinine 0.92 mg/dL (0.70-1.30) 07/03/23 04:50 Est GFR (MDRD) Af Amer > 60 (>60) 07/03/23 04:50 Est GFR (MDRD) Non-Af > 60 (>60) 07/03/23 04:50 Glucose 149 mg/dL (65-99) H 07/03/23 04:50 Lactic Acid 2.0 mmol/L (0.4-2.0) 07/03/23 05:20 Calcium 8.5 mg/dL (8.5-10.1) 07/03/23 04:50 Corrected Calcium TNP 07/03/23 04:50 Total Bilirubin 1.50 mg/dL (0.2-1.0) H 07/03/23 04:50 AST 19 Units/L (15-37) 07/03/23 04:50 ALT 46 Units/L (12-78) 07/03/23 04:50 Alkaline Phosphatase 83 Units/L (46-116) 07/03/23 04:50 C-Reactive Protein < 0.50 mg/L (0-3.0) 07/03/23 04:50 B-Natriuretic Peptide < 5.0 pg/mL (0-79) 07/03/23 04:50 Total Protein 7.4 g/dL (6.4-8.2) 07/03/23 04:50 Albumin 3.8 g/dL (3.4-5.0) 07/03/23 04:50 Globulin 3.6 g/dL (2.5-4.5) 07/03/23 04:50 Albumin/Globulin Ratio 1.1 Ratio (1.1-2.1) 07/03/23 04:50 Amylase 44 Units/L (25-115) 07/03/23 05:20 Lipase 47 Units/L (16-77) 07/03/23 05:20 Specimen Type Clean catch urine 07/03/23 05:20 Urine Color Dark yellow (YELLOW) 07/03/23 05:20 Urine Appearance Clear (CLEAR) 07/03/23 05:20 Urine pH 5.0 (5.0 - 8.0) 07/03/23 05:20 Ur Specific [place] 1.025 (1.000-1.030) 07/03/23 05:20 Urine Protein 4+ (NEGATIVE) 07/03/23 05:20 Urine Glucose (UA) Negative (NEGATIVE) 07/03/23 05:20 Urine Ketones Negative (NEGATIVE) 07/03/23 05:20 Urine Blood 2+ (NEGATIVE) 07/03/23 05:20 Urine Nitrite Negative (NEGATIVE) 07/03/23 05:20 Urine Bilirubin Negative (NEGATIVE) 07/03/23 05:20 Urine Urobilinogen Normal (NORMAL) 07/03/23 05:20 Ur Leukocyte Esterase Negative (NEGATIVE) 07/03/23 05:20 Urine RBC 3-5 /HPF (0-3) A 07/03/23 05:20 Urine WBC 0-2 /HPF (0-5) 07/03/23 05:20 Ur Squamous Epith Cells Few /HPF (NEGATIVE) 07/03/23 05:20 Amorphous Sediment 1+ /HPF (NEGATIVE) 07/03/23 05:20 Urine Bacteria Trace /HPF (NEGATIVE) 07/03/23 05:20 Hyaline Casts Moderate /LPF (NEGATIVE) 07/03/23 05:20 Urine Mucus Moderate /HPF (NEGATIVE) 07/03/23 05:20 Ur Culture Indicated? No/not indicated 07/03/23 05:20 SARS-CoV-2 (PCR) Negative (NEGATIVE) 07/03/23 04:44 Influenza Type A (PCR) Negative (NEGATIVE) 07/03/23 04:44 Influenza Type B (PCR) Negative (NEGATIVE) 07/03/23 04:44 RSV (PCR) Negative (NEGATIVE) 07/03/23 04:44 XRAY XRAY Interpreted by: Radiologist X-ray Results: EXAM: ABDCMEN/PELVIS WITH CON HISTORY: Nausea, vomiting, diarrhea TECHNIQUE: Axial postcontrast images with coronal and sagittal reformats. COMPARISON: 04/07/2022 FINDINGS: Lung bases are clear. The liver is enlarged but without focal space-occupying disease. No opaque stones are present within the gallbladder. Spleen, left adrenal gland, and pancreas are within normal limits. There is a stable hypodense right adrenal nodule likely a benign adenoma. Kidneys are unobstructed and without stones or masses. No ureteral calculi are identified. Calcific atherosclerotic changes present in the nondilated abdominal aorta. No intraperitoneal or retroperitoneal lymphadenopathy of significance is identified. The appendix is not identified with absolute certainty. There are no secondary signs of appendicitis present. There are no findings suggestive of colitis or diverticulitis. There is diastasis of the rectus abdominal musculature within which there is some small bowel best visualized on sagittal series 6, image 35 however within the area of diastasis there are multiple small fat containing ventral hernias and along the inferior aspect of the diastasis there is a 6.4 by 7.9 by 7.8 cm hernia containing mesenteric fat and a loop of small bowel. The bowel within this hernia demonstrates mild transmural thickening. The bowel proximal to the hernia is mildly dilated and distal to the hernia is more normal in caliber. Findings suggest a mild partial small bowel obstruction due to the loop of bowel within the hernia. Incarceration is likely. Early strangulation as evidenced by the mild mural thickening of the bowel within the hernia is possible. Surgical consultation recommended. No pelvic masses, pelvic fluid, or pelvic lymphadenopathy is identified. No lytic or blastic skeletal lesion is identified. IMPRESSION: Diastasis of the rectus abdominal musculature is redemonstrated along with multiple small uncomplicated fat containing ventral hernias. However along the inferior aspect of the diastasis there is a large 6.4 x 7.9 x 7.8 cm ventral hernia containing a loop of mildly edematous bowel which is contributing to a mild mid small bowel obstruction. Incarceration is likely. Very early strangulation can not be excluded. Expedient surgical evaluation is recommended. Hepatomegaly, unchanged Right adrenal adenoma THIS IS AN ELECTRONICALLY VERIFIED FINAL REPORT 07/03/2023 6:54 AM - Electronically signed by iTm Ashby MD EKG Compared to prior EKG Dated: 07/03/23 Rate: 89 [place]: LAD Rhythm: NSR Opioid Opioid Risk Tool Age (Gopal box if 16-45): No History of Preadolescent Sexual Abuse: No Total: 0 Total Score Risk Category: Low Risk Copyright: Deejay REY predicting aberrant behaviors Discharge Plan Diagnosis Discharge Problem: Partial obstruction of small intestine, Strangulated hernia of abdominal wall, Incarcerated intra-abdominal hernia Discharge Plan Patient Disposition: 09 ADMITTED INPATIENT Condition: Stable Prescriptions: No Action amlodipine 10 mg tablet 10 mg PO ONCE 30 Days Qty: 30 3RF atorvastatin [Lipitor] 40 mg tablet 40 mg PO QHS 90 Days Qty: 90 0RF metformin 500 mg tablet 500 mg PO QDAY 30 Days Qty: 30 3RF lisinopril 40 mg tablet 40 mg PO DAILY 30 Days Qty: 30 3RF gemfibrozil 600 mg tablet 600 mg PO BID 30 Days Qty: 60 3RF furosemide 40 mg tablet 40 mg PO QDAY 30 Days Qty: 30 3RF Health Concerns: Post Hospitalization: new medications and changes needed to prevent readmission or further decline. Pt educated and given instructions on all concerns. Plan of Treatment: Continue with present treatment and follow up plan. Pt is to keep follow up appointment as instructed and take medications as ordered. Orders to Discharge Patient Discharge Orders: Transfer (Routine); Ordered 07/03/23 Ordered By: Yolette Ulloa Follow ups/Referrals Follow ups/Referrals: Shreyas Arellano [Primary Care Provider] - 3 days Instructions Stand Alone Forms: Post Hospital Follow Up Care
[2023-07-03 05:40] LABS: BASOPHILS # (AUTO) 0.1 X10^3/uL (0.0-0.1); BASOPHILS % (AUTO) 0.4 % (0.2-1.0); EOSINOPHILS # (AUTO) 0.1 x10^3/uL (0.0-0.2); EOSINOPHILS % (AUTO) 0.7 % (0.9-2.9); HEMATOCRIT 44.6 % (42.0-54.0); HEMOGLOBIN 14.6 g/dL (13.5-18.0); LYMPHOCYTES # (AUTO) 0.7 X10^3/uL (1.3-2.9); LYMPHOCYTES % (AUTO) 3.9 % (21.0-51.0); MEAN CORPUSCULAR HEMOGLOBIN 28.3 pg (27.0-34.0); MEAN CORPUSCULAR HGB CONC 32.7 g/dL (33.0-35.0); MEAN CORPUSCULAR VOLUME 86.6 fL (80.0-100.0); MEAN PLATELET VOLUME 7.6 fL (7.4-11.0); MONOCYTES # (AUTO) 1.2 x10^3/uL (0.3-0.8); MONOCYTES % (AUTO) 6.6 % (0.0-13.0); NEUTROPHILS # (AUTO) 16.1 x10^3/uL (2.2-4.8); NEUTROPHILS % (AUTO) 88.4 % (42.0-75.0); PLATELET COUNT 365 X10^3/uL (150.0-450.0); RED BLOOD COUNT 5.15 X10^6/uL (4.7-6.0); RED CELL DISTRIBUTION WIDTH 13.1 % (11.6-16.5); WHITE BLOOD COUNT 18.2 X10^3/uL (3.6-10.0)
[2023-07-03 05:51] LABS: ALANINE AMINOTRANSFERASE 46 Units/L (12-78); ALBUMIN 3.8 g/dL (3.4-5.0); ALKALINE PHOSPHATASE 83 Units/L (46-116); ASPARTATE AMINO TRANSFERASE 19 Units/L (15-37); BLOOD UREA NITROGEN 24 mg/dL (7-18); CALCIUM 8.5 mg/dL (8.5-10.1); CARBON DIOXIDE 24.1 mmol/L (21-32); CHLORIDE 102 mmol/L (98-107); COR NA(FOR HYPERGLY) 138 mmol/L (136-145); CREATININE 0.92 mg/dL (0.70-1.30); GLUCOSE 149 mg/dL (65-99); POTASSIUM 3.9 mmol/L (3.5-5.1); SODIUM 137 mmol/L (136-145); TOTAL PROTEIN 7.4 g/dL (6.4-8.2); eGFR NON BLACK RACES > 60 (>60)
[2023-07-03 06:07] LABS: BILIRUBIN,URINE NEGATIVE (NEGATIVE); BLOOD/HEMOGLOBIN,URINE 2+ (NEGATIVE); GLUCOSE, URINE NEGATIVE (NEGATIVE); KETONES,URINE NEGATIVE (NEGATIVE); LEUKOCYTE ESTERASE ,URINE NEGATIVE (NEGATIVE); NITRITES,URINE NEGATIVE (NEGATIVE); PROTEIN,URINE 4+ (NEGATIVE); UROBILINOGEN,URINE NORMAL (NORMAL)
[2023-07-03 06:09] LABS: APPEARANCE,URINE CLEAR (CLEAR); COLOR,URINE DARK YELLOW (YELLOW)
[2023-07-03 06:12] LABS: AMYLASE 44 Units/L (25-115); LIPASE 47 Units/L (16-77)
[2023-07-03 06:15] LABS: SQUAMOUS EPITHELIAL CELL,UR FEW /HPF (NEGATIVE)
[2023-07-03 06:16] LABS: BACTERIA,URINE TRACE /HPF (NEGATIVE); HYALINE CASTS, URINE MODERATE /LPF (NEGATIVE)
--- NOTE | 2023-07-03 06:18 | RAD ---
EXAM:CHEST, 1 VIEWHISTORY:vomitting, diarrhea, dizziness;COMPARISON:08/13/2020FINDINGS: The cardiomediastinal silhouette is normal in size.No acute airspace disease. No pneumothorax or effusion.No acute osseous abnormality.IMPRESSION:No acute cardiopulmonary disease.THIS IS AN ELECTRONICALLY VERIFIED FINAL REPORT07/03/2023 6:15 AM - Electronically signed by Tim Ashby MD
--- NOTE | 2023-07-03 06:57 | CT ---
EXAM:ABDCMEN/PELVIS WITH CONHISTORY:Nausea, vomiting, diarrheaTECHNIQUE:Axial postcontrast images with coronal and sagittal reformats.COMPARISON:04/07/2022FINDINGS: Lung bases are clear. The liver is enlarged but without focal space-occupying disease. No opaque stones are present within the gallbladder. Spleen, left adrenal gland, and pancreas are within normal limits. There is a stable hypodense right adrenal nodule likely a benign adenoma. Kidneys are unobstructed and without stones or masses. No ureteral calculi are identified. Calcific atherosclerotic changes present in the nondilated abdominal aorta. No intraperitoneal or retroperitoneal lymphadenopathy of significance is identified. The appendix is not identified with absolute certainty. There are no secondary signs of appendicitis present. There are no findings suggestive of colitis or diverticulitis. There is diastasis of the rectus abdominal musculature within which there is some small bowel best visualized on sagittal series 6, image 35 however within the area of diastasis there are multiple small fat containing ventral hernias and along the inferior aspect of the diastasis there is a 6.4 by 7.9 by 7.8 cm hernia containing mesenteric fat and a loop of small bowel. The bowel within this hernia demonstrates mild transmural thickening. The bowel proximal to the hernia is mildly dilated and distal to the hernia is more normal in caliber. Findings suggest a mild partial small bowel obstruction due to the loop of bowel within the hernia. Incarceration is likely. Early strangulation as evidenced by the mild mural thickening of the bowel within the hernia is possible. Surgical consultation recommended. No pelvic masses, pelvic fluid, or pelvic lymphadenopathy is identified. No lytic or blastic skeletal lesion is identified.IMPRESSION:Diastasis of the rectus abdominal musculature is redemonstrated along with multiple small uncomplicated fat containing ventral hernias. However along the inferior aspect of the diastasis there is a large 6.4 x 7.9 x 7.8 cm ventral hernia containing a loop of mildly edematous bowel which is contributing to a mild mid small bowel obstruction. Incarceration is likely. Very early strangulation can not be excluded. Expedient surgical evaluation is recommended.Hepatomegaly, unchangedRight adrenal adenomaTHIS IS AN ELECTRONICALLY VERIFIED FINAL REPORT07/03/2023 6:54 AM - Electronically signed by Tim Ashby MD
[2023-07-03] MEDS ORDERED: DILAUDID INJ IVP ONE (07:03)
[2023-07-03] MEDS ORDERED: DILAUDID INJ ONE (07:08)
[2023-07-03] MEDS ORDERED: NS 100 ML IV 100 ML ONE (07:08)
[2023-07-03] MEDS ORDERED: ZOSYN VIAL 4.5 GRAMS IV ONE (07:08)
[2023-07-03] MEDS: ZOSYN VIAL 4.5 GRAMS 4.5 G in NS 100 ML IV 100 ML IV SCH ×3 (07:15→21:26)
[2023-07-03] MEDS ORDERED: ZOFRAN INJ 4 MG VIAL ONE (08:29)
[2023-07-03] MEDS ORDERED: ZOFRAN INJ 4 MG VIAL IVP ONE (08:33)
[2023-07-03] MEDS ORDERED: ZOFRAN INJ 4 MG VIAL IVP PRN (10:29)
[2023-07-03] MEDS: ZESTRIL TAB 40 MG PO SCH (11:00)
[2023-07-03] MEDS: LR 1,000 ML IV 1,000 ML IV SCH (11:00)
[2023-07-03] MEDS: LASIX PO SCH (11:00)
[2023-07-03] MEDS: NORVASC TAB 10 MG PO SCH (11:00)
[2023-07-03] MEDS: LOPID PO SCH ×2 (11:00→20:33)
[2023-07-03] MEDS: FLAGYL TAB 500 MG PO SCH ×2 (16:04→21:10)
[2023-07-03] MEDS: DILAUDID INJ IVP PRN (20:32)
[2023-07-03] MEDS: LIPITOR TAB 40 MG PO SCH (20:33)
[2023-07-04] MEDS: LR 1,000 ML IV 1,000 ML IV SCH ×3 (00:18→13:09)
[2023-07-04 04:57] LABS: BASOPHILS % (AUTO) 0.2 % (0.2-1.0); EOSINOPHILS # (AUTO) 0.2 x10^3/uL (0.0-0.2); EOSINOPHILS % (AUTO) 2.7 % (0.9-2.9); HEMATOCRIT 39.1 % (42.0-54.0); LYMPHOCYTES # (AUTO) 1.3 X10^3/uL (1.3-2.9); LYMPHOCYTES % (AUTO) 19.4 % (21.0-51.0); MEAN CORPUSCULAR HEMOGLOBIN 28.9 pg (27.0-34.0); MEAN CORPUSCULAR HGB CONC 33.2 g/dL (33.0-35.0); MEAN CORPUSCULAR VOLUME 87.2 fL (80.0-100.0); MEAN PLATELET VOLUME 7.5 fL (7.4-11.0); MONOCYTES # (AUTO) 0.6 x10^3/uL (0.3-0.8); MONOCYTES % (AUTO) 8.5 % (0.0-13.0); NEUTROPHILS # (AUTO) 4.8 x10^3/uL (2.2-4.8); NEUTROPHILS % (AUTO) 69.2 % (42.0-75.0); PLATELET COUNT 312 X10^3/uL (150.0-450.0); RED BLOOD COUNT 4.49 X10^6/uL (4.7-6.0); RED CELL DISTRIBUTION WIDTH 13.4 % (11.6-16.5)
[2023-07-04 05:08] LABS: ALANINE AMINOTRANSFERASE 31 Units/L (12-78); ALKALINE PHOSPHATASE 72 Units/L (46-116); ASPARTATE AMINO TRANSFERASE 12 Units/L (15-37); BLOOD UREA NITROGEN 26 mg/dL (7-18); CALCIUM 7.9 mg/dL (8.5-10.1); CARBON DIOXIDE 26.5 mmol/L (21-32); CHLORIDE 104 mmol/L (98-107); COR CA(FOR HYPOALB) 8.7 mg/dL (8.5-10.1); COR NA(FOR HYPERGLY) 139 mmol/L (136-145); CREATININE 0.96 mg/dL (0.70-1.30); GLUCOSE 135 mg/dL (65-99); POTASSIUM 3.8 mmol/L (3.5-5.1); SODIUM 138 mmol/L (136-145); TOTAL PROTEIN 6.3 g/dL (6.4-8.2); eGFR NON BLACK RACES > 60 (>60)
[2023-07-04 05:13] LABS: WHITE BLOOD COUNT 6.9 X10^3/uL (3.6-10.0)
[2023-07-04] MEDS: FLAGYL TAB 500 MG PO SCH ×3 (05:32→22:40)
[2023-07-04] MEDS: ZOSYN VIAL 4.5 GRAMS 4.5 G in NS 100 ML IV 100 ML IV SCH ×3 (05:33→22:40)
--- NOTE | 2023-07-04 07:14 | DR.CONSULT ---
CONSULT Consultation for Day of: Date: 07/03/23 Chief Complaint Chief Complaint: Abdominal pain Nausea, vomiting, diarrhea Allergies Allergies Allergy/AdvReac Type Severity Reaction Status Date / Time No Known Drug Allergies Allergy Verified 07/03/23 04:47 History of Present Illness History of Present Illness: Patient is a 52-year-old male with past medical hist ory of abdominal hernia repair x 3. He currently has 2 ventral hernias. He has been complaining of nausea, vomiting, diarrhea, with some abdominal pain for the past 2 to 3 days. He reports feeling weak. Denies fevers, chills. Labs/imaging: WBC 18.2, hemoglobin 14.6, platelets 365, sodium 138, potassium 3.8, creatinine 0.96, glucose 135, UA is negative, C. difficile negative, stool culture including AIT is pending. Chest x-ray was obtained that revealed no acute cardiopulmonary findings. CT abdomen pelvis was obtained that revealed: Diastasis of the rectus abdominal musculature is redemonstrated along with multiple small uncomplicated fat containing ventral hernias. However along the inferior aspect of the diastasis there is a large 6.4 x 7.9 x 7.8 cm ventral hernia containing a loop of mildly edematous bowel which is contributing to a mild mid small bowel obstruction. Incarceration is likely. Very early strangulation can not be excluded. General surgery has admitted patient. Kp page consulted for medical management. Plan from surgery at this time is conservative treatment. Continue to closely monitor patient. Will restart home medications. Patient is on a clear liquid diet. Continue IV antibiotics Zosyn and p.o. Flagyl. Continue to closely monitor and follow-up labs/imaging in the morning. Past Medical History Past Medical History: Anxiety, CHF, Diabetes, Dyslipidemia and Hypertension Past Surgical History Surgical History: Other Family History Family Medical History: Diabetes Mellitus, [place], Coronary Artery Disease and Hypertension Social History Does patient currently use any type of tobacco product: No Have you used tobacco products in the last 12 months: No Type of Tobacco Use: None Does any household member use tobacco: No Alcohol Use: None Drug Use: None Medications Home Medications: No Known Drug Allergies Allergy (Verified 07/03/23 04:47) Review of Systems Constitutional: Weakness Eyes: No Symptoms Reported ENT: No Symptoms Reported Respiratory: No Symptoms Reported Cardiovascular: No Symptoms Reported Gastrointestinal: Nausea, Vomiting, Abdominal Pain and Diarrhea Genitourinary: No Symptoms Reported Musculoskeletal: No Symptoms Reported Skin: No Symptoms Reported Neurological: No Symptoms Reported Physical Exam Vital Signs: Vital Signs Temperature 98.4 F Temperature 98.6 F Pulse Rate [Right Brachial] 86 Pulse Rate [Right Brachial] 86 Respiratory Rate 19 Respiratory Rate 18 Blood Pressure [Left Arm] 153/74 Blood Pressure [Left Arm] 147/77 O2 Sat by Pulse Oximetry 95 O2 Sat by Pulse Oximetry 94 Oriented: Normal Eyes: Normal Ear: Normal Nose: Normal Throat: Normal Respiratory: Clear Throughout Cardiovascular: Normal : Normal Auscultation: Bowel Sounds: Normal Palpation: Normal Tenderness: Diffuse Skin: Normal Musculoskeletal: Normal Mood Description: Calm Speech Pattern: Clear Plan (1) Partial obstruction of small intestine: Status: Acute (2) Incisional hernia: Status: Acute (3) Morbid obesity with BMI of 50.0-59.9, adult: Status: Acute (4) Incarcerated intra-abdominal hernia: Status: Acute (5) Diabetes mellitus: Status: Acute (6) Hyperlipidemia: Status: Acute (7) Hypertension: Status: Acute
--- NOTE | 2023-07-04 07:18 | RAD ---
EXAM:KUBHISTORY:Follow-up partial small bowel obstructionCOMPARISON:CT abdomen pelvis 07/03/2023FINDINGS:Abdominal gas pattern is nonspecific and nonobstructive. No dilated small bowel loops are identified. Gas is present within the colon. It should be noted that the mildly dilated loops of small bowel proximal to the patient's ventral hernia were fluid-filled on the recent CT and would not be expected to be visible on plain film. No abnormal masses or abnormal calcifications are identified. Regional skeleton is intact.IMPRESSION:Nonspecific bowel gas pattern without visible small bowel dilatation, however, see discussion aboveTHIS IS AN ELECTRONICALLY VERIFIED FINAL REPORT07/04/2023 7:15 AM - Electronically signed by Tim Ashby MD
[2023-07-04] MEDS: LASIX PO SCH (08:35)
[2023-07-04] MEDS: NORVASC TAB 10 MG PO SCH (08:35)
[2023-07-04] MEDS: LOPID PO SCH ×2 (08:35→20:54)
[2023-07-04] MEDS: DILAUDID INJ IVP PRN ×3 (08:36→20:55)
[2023-07-04] MEDS: ZESTRIL TAB 40 MG PO SCH (08:36)
--- NOTE | 2023-07-04 08:50 | DR.PROGNOT ---
HOSPITAL PROGRESS NOTE Progress Note for Day of: Progress Note Date: 07/04/23 Chief Complaint Chief Complaint: Much less abdominal pain today, no nausea or vomiting. Still having loose bowel movement with incontinence, C. difficile was negative. Blood sugar 135, BUN 26 with normal creatinine. KUB showed no evidence of bowel obstruction. Patient is afebrile. Past Medical Family Social History Allergies: Allergies No Known Drug Allergies Allergy (Verified 07/03/23 04:47) Review Of Systems ROS: No change since H&P Vital Signs Vital Signs: Vital Signs Temperature 98.8 F Temperature 98.4 F Pulse Rate [Right Brachial] 81 Pulse Rate [Right Brachial] 86 Respiratory Rate 18 Respiratory Rate 20 Respiratory Rate 19 Blood Pressure [Left Arm] 139/65 Blood Pressure [Left Arm] 153/74 O2 Sat by Pulse Oximetry 93 O2 Sat by Pulse Oximetry 95 Physical Exam Oriented: Normal Eyes: Normal Ear: Normal Nose: Normal Throat: Normal Cardiovascular: Normal : Normal GI:Auscultation: Normal GI:Palpation: Normal and Other (Soft and flat abdomen with partially reducible incisional hernias. Bowel sounds present.) GI: Tenderness: Diffuse Skin: Normal Musculoskeletal: Normal Mood Description: Calm Speech Pattern: Clear Laboratory and Diagnostics 07/04/23 04:42 07/04/23 04:42 Labs: 07/03/23 15:28 Stool Stool Culture - Preliminary 07/03/23 15:28 Stool - Final Laboratory WBC 6.9 X10^3/uL (3.6-10.0) D 07/04/23 04:42 RBC 4.49 X10^6/uL (4.7-6.0) L 07/04/23 04:42 Hgb 13.0 g/dL (13.5-18.0) L 07/04/23 04:42 Hct 39.1 % (42.0-54.0) L 07/04/23 04:42 MCV 87.2 fL (80.0-100.0) 07/04/23 04:42 MCH 28.9 pg (27.0-34.0) 07/04/23 04:42 MCHC 33.2 g/dL (33.0-35.0) 07/04/23 04:42 RDW 13.4 % (11.6-16.5) 07/04/23 04:42 Plt Count 312 X10^3/uL (150.0-450.0) 07/04/23 04:42 MPV 7.5 fL (7.4-11.0) 07/04/23 04:42 Neut % (Auto) 69.2 % (42.0-75.0) 07/04/23 04:42 Lymph % (Auto) 19.4 % (21.0-51.0) L 07/04/23 04:42 [place] % (Auto) 8.5 % (0.0-13.0) 07/04/23 04:42 Eos % (Auto) 2.7 % (0.9-2.9) 07/04/23 04:42 Baso % (Auto) 0.2 % (0.2-1.0) 07/04/23 04:42 Neut # (Auto) 4.8 x10^3/uL (2.2-4.8) 07/04/23 04:42 Lymph # (Auto) 1.3 X10^3/uL (1.3-2.9) 07/04/23 04:42 [place] # (Auto) 0.6 x10^3/uL (0.3-0.8) 07/04/23 04:42 Eos # (Auto) 0.2 x10^3/uL (0.0-0.2) 07/04/23 04:42 Baso # (Auto) 0.0 X10^3/uL (0.0-0.1) 07/04/23 04:42 Absolute Nucleated RBC 0.0 /100WBC 07/04/23 04:42 D-Dimer 0.35 ug/ml (0.0-0.57) 07/03/23 04:50 Sample Site Lr 07/03/23 05:05 ABG pH 7.340 (7.35-7.45) L 07/03/23 05:05 ABG pCO2 41.0 mmHg (35.0-45.0) 07/03/23 05:05 ABG pO2 82.0 mmHg (80.0-100.0) 07/03/23 05:05 ABG HCO3 22.1 mmol/L (22-26) 07/03/23 05:05 ABG O2 Saturation 95.0 % (90-100) 07/03/23 05:05 ABG Base Excess -3.5 mmol/L (-2.0-2.0) L 07/03/23 05:05 Kaden Test Pos 07/03/23 05:05 A-a Gradient 16.0 mmHg 07/03/23 05:05 FiO2 21.0 07/03/23 05:05 Blood Gas Comments Davi well ae 07/03/23 05:05 Sodium 138 mmol/L (136-145) 07/04/23 04:42 Corrected Sodium 139 mmol/L (136-145) 07/04/23 04:42 Potassium 3.8 mmol/L (3.5-5.1) 07/04/23 04:42 Chloride 104 mmol/L (98-107) 07/04/23 04:42 Carbon Dioxide 26.5 mmol/L (21-32) 07/04/23 04:42 BUN 26 mg/dL (7-18) H 07/04/23 04:42 Creatinine 0.96 mg/dL (0.70-1.30) 07/04/23 04:42 Est GFR (MDRD) Af Amer > 60 (>60) 07/04/23 04:42 Est GFR (MDRD) Non-Af > 60 (>60) 07/04/23 04:42 Glucose 135 mg/dL (65-99) H 07/04/23 04:42 POC Glucose (mg/dL) 125 mg/dL (65-99) H 07/04/23 05:25 Lactic Acid 2.0 mmol/L (0.4-2.0) 07/03/23 05:20 Calcium 7.9 mg/dL (8.5-10.1) L 07/04/23 04:42 Corrected Calcium 8.7 mg/dL (8.5-10.1) 07/04/23 04:42 Total Bilirubin 1.30 mg/dL (0.2-1.0) H 07/04/23 04:42 AST 12 Units/L (15-37) L 07/04/23 04:42 ALT 31 Units/L (12-78) 07/04/23 04:42 Alkaline Phosphatase 72 Units/L (46-116) 07/04/23 04:42 C-Reactive Protein < 0.50 mg/L (0-3.0) 07/03/23 04:50 B-Natriuretic Peptide < 5.0 pg/mL (0-79) 07/03/23 04:50 Total Protein 6.3 g/dL (6.4-8.2) L 07/04/23 04:42 Albumin 3.0 g/dL (3.4-5.0) L 07/04/23 04:42 Globulin 3.3 g/dL (2.5-4.5) 07/04/23 04:42 Albumin/Globulin Ratio 0.9 Ratio (1.1-2.1) L 07/04/23 04:42 Amylase 44 Units/L (25-115) 07/03/23 05:20 Lipase 47 Units/L (16-77) 07/03/23 05:20 Specimen Type Clean catch urine 07/03/23 05:20 Urine Color Dark yellow (YELLOW) 07/03/23 05:20 Urine Appearance Clear (CLEAR) 07/03/23 05:20 Urine pH 5.0 (5.0 - 8.0) 07/03/23 05:20 Ur Specific [place] 1.025 (1.000-1.030) 07/03/23 05:20 Urine Protein 4+ (NEGATIVE) 07/03/23 05:20 Urine Glucose (UA) Negative (NEGATIVE) 07/03/23 05:20 Urine Ketones Negative (NEGATIVE) 07/03/23 05:20 Urine Blood 2+ (NEGATIVE) 07/03/23 05:20 Urine Nitrite Negative (NEGATIVE) 07/03/23 05:20 Urine Bilirubin Negative (NEGATIVE) 07/03/23 05:20 Urine Urobilinogen Normal (NORMAL) 07/03/23 05:20 Ur Leukocyte Esterase Negative (NEGATIVE) 07/03/23 05:20 Urine RBC 3-5 /HPF (0-3) A 07/03/23 05:20 Urine WBC 0-2 /HPF (0-5) 07/03/23 05:20 Ur Squamous Epith Cells Few /HPF (NEGATIVE) 07/03/23 05:20 Amorphous Sediment 1+ /HPF (NEGATIVE) 07/03/23 05:20 Urine Bacteria Trace /HPF (NEGATIVE) 07/03/23 05:20 Hyaline Casts Moderate /LPF (NEGATIVE) 07/03/23 05:20 Urine Mucus Moderate /HPF (NEGATIVE) 07/03/23 05:20 Ur Culture Indicated? No/not indicated 07/03/23 05:20 Stl Occult Blood (IFOB) Positive (NEGATIVE) A 07/03/23 15:28 Stool for White Cells Positive (NEGATIVE) A 07/03/23 15:28 Stl C. diff Tox B Gene Negative (NEGATIVE) 07/03/23 15:28 Stl C. diff [id number] Presumptive negative (NEGATIVE) 07/03/23 15:28 SARS-CoV-2 (PCR) Negative (NEGATIVE) 07/03/23 04:44 Influenza Type A (PCR) Negative (NEGATIVE) 07/03/23 04:44 Influenza Type B (PCR) Negative (NEGATIVE) 07/03/23 04:44 RSV (PCR) Negative (NEGATIVE) 07/03/23 04:44 Assessment and Plan 1: Recurrent multiple incisional hernias. Abdominal adhesions status post multiple abdominal surgeries. 2: Morbid obesity. 3: Morbid obesity with obstructive sleep apnea.. On CPAP. Medical and cardiac evaluation was requested.. To advance diet today.. Problem Patient Problems: Patient Problems Partial obstruction of small intestine (Acute) K56.600 Strangulated hernia of abdominal wall (Acute) K43.6 Incarcerated intra-abdominal hernia (Acute) K46.0
--- NOTE | 2023-07-04 12:04 | DR.CONSULT ---
CONSULT Consultation for Day of: Date: 07/04/23 Chief Complaint Chief Complaint: need for hernia surgery- GRADY Allergies Allergies Allergy/AdvReac Type Severity Reaction Status Date / Time No Known Drug Allergies Allergy Verified 07/03/23 04:47 History of Present Illness History of Present Illness: 52 male- SAMINA/htn/hlp/dm/quit smoking 2 years ago- admitted for large ventral hernia- very sob w exertion/edema- weighs 315 lbs- no past cardiac hx/testing, ekg: unremarkable, hct 35, glu 110-120 cxr: nad, CT: 6.4 x 7.9 x 7 hernia, bnp <5 Past Medical History Past Medical History: Anxiety, CHF, Diabetes, Dyslipidemia and Hypertension Past Surgical History Surgical History: Other Family History Family Medical History: Diabetes Mellitus, [place], Coronary Artery Disease and Hypertension Social History Does patient currently use any type of tobacco product: No Have you used tobacco products in the last 12 months: No Type of Tobacco Use: None Does any household member use tobacco: No Alcohol Use: None Drug Use: None Medications Home Medications: No Known Drug Allergies Allergy (Verified 07/03/23 04:47) Physical Exam Vital Signs: Vital Signs Temperature 98.8 F Temperature 98.4 F Pulse Rate [Right Brachial] 81 Pulse Rate [Right Brachial] 86 Respiratory Rate 18 Respiratory Rate 18 Respiratory Rate 20 Respiratory Rate 19 Blood Pressure [Left Arm] 139/65 Blood Pressure [Left Arm] 153/74 O2 Sat by Pulse Oximetry 93 O2 Sat by Pulse Oximetry 95 loudly snoring before I woke up, obese no bruits clear lungs rrr 1-2 plus edema B Plan (1) Partial obstruction of small intestine: Status: Acute (2) Incisional hernia: Status: Acute (3) Morbid obesity with BMI of 50.0-59.9, adult: Status: Acute (4) Incarcerated intra-abdominal hernia: Status: Acute (5) Diabetes mellitus: Status: Acute (6) Hyperlipidemia: Status: Acute (7) Hypertension: Status: Acute (8) GRADY (dyspnea on exertion): Status: Acute (9) Preoperative clearance: Status: Acute Narrative Support Text: echo /attemt walking stress as ekg normal
[2023-07-04] MEDS: LIPITOR TAB 40 MG PO SCH (20:53)
[2023-07-05] MEDS: LR 1,000 ML IV 1,000 ML IV SCH ×2 (02:13)
[2023-07-05] MEDS: FLAGYL TAB 500 MG PO SCH (05:23)
[2023-07-05] MEDS: ZOSYN VIAL 4.5 GRAMS 4.5 G in NS 100 ML IV 100 ML IV SCH (05:24)
[2023-07-05] MEDS: DILAUDID INJ IVP PRN ×2 (06:00→09:40)
[2023-07-05 06:20] LABS: BASOPHILS % (AUTO) 0.6 % (0.2-1.0); EOSINOPHILS # (AUTO) 0.2 x10^3/uL (0.0-0.2); HEMATOCRIT 37.6 % (42.0-54.0); HEMOGLOBIN 12.5 g/dL (13.5-18.0); LYMPHOCYTES % (AUTO) 29.9 % (21.0-51.0); MEAN CORPUSCULAR HEMOGLOBIN 28.9 pg (27.0-34.0); MEAN CORPUSCULAR HGB CONC 33.3 g/dL (33.0-35.0); MEAN CORPUSCULAR VOLUME 86.9 fL (80.0-100.0); MEAN PLATELET VOLUME 7.6 fL (7.4-11.0); MONOCYTES # (AUTO) 0.6 x10^3/uL (0.3-0.8); MONOCYTES % (AUTO) 8.3 % (0.0-13.0); NEUTROPHILS # (AUTO) 3.9 x10^3/uL (2.2-4.8); NEUTROPHILS % (AUTO) 58.2 % (42.0-75.0); PLATELET COUNT 290 X10^3/uL (150.0-450.0); RED BLOOD COUNT 4.33 X10^6/uL (4.7-6.0); RED CELL DISTRIBUTION WIDTH 13.4 % (11.6-16.5); WHITE BLOOD COUNT 6.7 X10^3/uL (3.6-10.0)
[2023-07-05 06:43] LABS: ALANINE AMINOTRANSFERASE 31 Units/L (12-78); ALBUMIN 2.9 g/dL (3.4-5.0); ALKALINE PHOSPHATASE 67 Units/L (46-116); ASPARTATE AMINO TRANSFERASE 13 Units/L (15-37); BLOOD UREA NITROGEN 11 mg/dL (7-18); CALCIUM 7.9 mg/dL (8.5-10.1); CARBON DIOXIDE 25.6 mmol/L (21-32); CHLORIDE 103 mmol/L (98-107); COR CA(FOR HYPOALB) 8.8 mg/dL (8.5-10.1); COR NA(FOR HYPERGLY) 138 mmol/L (136-145); GLUCOSE 126 mg/dL (65-99); POTASSIUM 3.8 mmol/L (3.5-5.1); SODIUM 137 mmol/L (136-145); TOTAL PROTEIN 6.2 g/dL (6.4-8.2); eGFR NON BLACK RACES > 60 (>60)
[2023-07-05] MEDS ORDERED: CONSULT PHARMACY - POTASSIUM & MAGNESIUM XX SCH (08:00)
[2023-07-05 08:30] VITALS: PULSE 78
[2023-07-05] MEDS: LASIX PO SCH (08:42)
[2023-07-05] MEDS: NORVASC TAB 10 MG PO SCH (08:42)
[2023-07-05] MEDS: ZESTRIL TAB 40 MG PO SCH (08:42)
[2023-07-05] MEDS: LOPID PO SCH (08:42)
[2023-07-05 10:57] VITALS: RESP 18
--- NOTE | 2023-07-05 11:37 | RAD ---
EXAM:KUBHISTORY:PAIN; hernia x 3, diabetes, htnCOMPARISON:NoneFINDINGS:The exam is limited by quantum mottle, diffusely. The bowel gas pattern is nonspecific. No other acute or gross abdominal abnormalities are identified.IMPRESSION:1. No significant abnormalityTHIS IS AN ELECTRONICALLY VERIFIED FINAL REPORT07/05/2023 11:33 AM - Electronically signed by Jomar Amaral
[2023-07-05 12:05] VITALS: BP 130/67; TEMP 97.6; O2SAT 95
--- NOTE | 2023-07-06 06:23 | PCM.PROG ---
Progress Note Progress Note for Day of Date of Exam: 07/04/23 Subjective Subjective: Patient is a 52-year-old male with past medical history of abdominal hernia repair x 3. He currently has 2 ventral hernias admitted for small bowel obstruction. This morning he reports feeling better, he is able to tolerate more po intake. Labs/imaging: WBC 6.9, hemoglobin 13, platelets 312, sodium 138, potassium 3.8, creatinine 0.96, glucose 135. KUB this morning-see report. General surgery has admitted patient. Medical consulted for medical management. Plan to continue with conservative treatment. Continue to closely monitor patient. Home medications have been resumed. Patient diet to be advanced. Continue IV antibiotics Zosyn and p.o. Flagyl. Continue to closely monitor and follow-up labs/imaging in the morning. Past Medical Family Social History Allergies: Allergies No Known Drug Allergies Allergy (Verified 07/03/23 04:47) Review of Systems ROS changes noted: see HPI Vital Signs and I&O's Intake and Output: Intake & Output 07/03/23 07/04/23 07/05/23 07/06/23 23:59 23:59 23:59 23:59 Intake Total 587 / 587 1491 / 1491 1300 / 1300 Output Total 3 / 3 / 3 Balance 584 / 584 1488 / 1488 1300 / 1300 Physical Exam Oriented: Normal Eyes: Normal Ear: Normal Nose: Normal Throat: Normal Cardiovascular: Normal : Normal Auscultation: Bowel Sounds: Normal Tenderness: Diffuse Skin: Normal Musculoskeletal: Normal Mood Description: Calm Speech Pattern: Clear Laboratory and Diagnostics 07/05/23 05:43 07/05/23 05:43 Labs: 07/03/23 05:25 Blood Blood Culture - Preliminary 07/03/23 05:20 Blood Blood Culture - Preliminary 07/03/23 15:28 Stool Stool Culture - Final 07/03/23 15:28 Stool - Final Laboratory WBC 6.7 X10^3/uL (3.6-10.0) 07/05/23 05:43 RBC 4.33 X10^6/uL (4.7-6.0) L 07/05/23 05:43 Hgb 12.5 g/dL (13.5-18.0) L 07/05/23 05:43 Hct 37.6 % (42.0-54.0) L 07/05/23 05:43 MCV 86.9 fL (80.0-100.0) 07/05/23 05:43 MCH 28.9 pg (27.0-34.0) 07/05/23 05:43 MCHC 33.3 g/dL (33.0-35.0) 07/05/23 05:43 RDW 13.4 % (11.6-16.5) 07/05/23 05:43 Plt Count 290 X10^3/uL (150.0-450.0) 07/05/23 05:43 MPV 7.6 fL (7.4-11.0) 07/05/23 05:43 Neut % (Auto) 58.2 % (42.0-75.0) 07/05/23 05:43 Lymph % (Auto) 29.9 % (21.0-51.0) 07/05/23 05:43 [place] % (Auto) 8.3 % (0.0-13.0) 07/05/23 05:43 Eos % (Auto) 3.0 % (0.9-2.9) H 07/05/23 05:43 Baso % (Auto) 0.6 % (0.2-1.0) 07/05/23 05:43 Neut # (Auto) 3.9 x10^3/uL (2.2-4.8) 07/05/23 05:43 Lymph # (Auto) 2.0 X10^3/uL (1.3-2.9) 07/05/23 05:43 [place] # (Auto) 0.6 x10^3/uL (0.3-0.8) 07/05/23 05:43 Eos # (Auto) 0.2 x10^3/uL (0.0-0.2) 07/05/23 05:43 Baso # (Auto) 0.0 X10^3/uL (0.0-0.1) 07/05/23 05:43 Absolute Nucleated RBC 0.0 /100WBC 07/05/23 05:43 D-Dimer 0.35 ug/ml (0.0-0.57) 07/03/23 04:50 Sample Site Lr 07/03/23 05:05 ABG pH 7.340 (7.35-7.45) L 07/03/23 05:05 ABG pCO2 41.0 mmHg (35.0-45.0) 07/03/23 05:05 ABG pO2 82.0 mmHg (80.0-100.0) 07/03/23 05:05 ABG HCO3 22.1 mmol/L (22-26) 07/03/23 05:05 ABG O2 Saturation 95.0 % (90-100) 07/03/23 05:05 ABG Base Excess -3.5 mmol/L (-2.0-2.0) L 07/03/23 05:05 Kaedn Test Pos 07/03/23 05:05 A-a Gradient 16.0 mmHg 07/03/23 05:05 FiO2 21.0 07/03/23 05:05 Blood Gas Comments Davi well ae 07/03/23 05:05 Sodium 137 mmol/L (136-145) 07/05/23 05:43 Corrected Sodium 138 mmol/L (136-145) 07/05/23 05:43 Potassium 3.8 mmol/L (3.5-5.1) 07/05/23 05:43 Chloride 103 mmol/L (98-107) 07/05/23 05:43 Carbon Dioxide 25.6 mmol/L (21-32) 07/05/23 05:43 BUN 11 mg/dL (7-18) 07/05/23 05:43 Creatinine 0.70 mg/dL (0.70-1.30) 07/05/23 05:43 Est GFR (MDRD) Af Amer > 60 (>60) 07/05/23 05:43 Est GFR (MDRD) Non-Af > 60 (>60) 07/05/23 05:43 Glucose 126 mg/dL (65-99) H 07/05/23 05:43 POC Glucose (mg/dL) 150 mg/dL (65-99) H 07/05/23 11:01 Lactic Acid 2.0 mmol/L (0.4-2.0) 07/03/23 05:20 Calcium 7.9 mg/dL (8.5-10.1) L 07/05/23 05:43 Corrected Calcium 8.8 mg/dL (8.5-10.1) 07/05/23 05:43 Total Bilirubin 0.60 mg/dL (0.2-1.0) 07/05/23 05:43 AST 13 Units/L (15-37) L 07/05/23 05:43 ALT 31 Units/L (12-78) 07/05/23 05:43 Alkaline Phosphatase 67 Units/L (46-116) 07/05/23 05:43 C-Reactive Protein < 0.50 mg/L (0-3.0) 07/03/23 04:50 B-Natriuretic Peptide < 5.0 pg/mL (0-79) 07/03/23 04:50 Total Protein 6.2 g/dL (6.4-8.2) L 07/05/23 05:43 Albumin 2.9 g/dL (3.4-5.0) L 07/05/23 05:43 Globulin 3.3 g/dL (2.5-4.5) 07/05/23 05:43 Albumin/Globulin Ratio 0.9 Ratio (1.1-2.1) L 07/05/23 05:43 Amylase 44 Units/L (25-115) 07/03/23 05:20 Lipase 47 Units/L (16-77) 07/03/23 05:20 Specimen Type Clean catch urine 07/03/23 05:20 Urine Color Dark yellow (YELLOW) 07/03/23 05:20 Urine Appearance Clear (CLEAR) 07/03/23 05:20 Urine pH 5.0 (5.0 - 8.0) 07/03/23 05:20 Ur Specific [place] 1.025 (1.000-1.030) 07/03/23 05:20 Urine Protein 4+ (NEGATIVE) 07/03/23 05:20 Urine Glucose (UA) Negative (NEGATIVE) 07/03/23 05:20 Urine Ketones Negative (NEGATIVE) 07/03/23 05:20 Urine Blood 2+ (NEGATIVE) 07/03/23 05:20 Urine Nitrite Negative (NEGATIVE) 07/03/23 05:20 Urine Bilirubin Negative (NEGATIVE) 07/03/23 05:20 Urine Urobilinogen Normal (NORMAL) 07/03/23 05:20 Ur Leukocyte Esterase Negative (NEGATIVE) 07/03/23 05:20 Urine RBC 3-5 /HPF (0-3) A 07/03/23 05:20 Urine WBC 0-2 /HPF (0-5) 07/03/23 05:20 Ur Squamous Epith Cells Few /HPF (NEGATIVE) 07/03/23 05:20 Amorphous Sediment 1+ /HPF (NEGATIVE) 07/03/23 05:20 Urine Bacteria Trace /HPF (NEGATIVE) 07/03/23 05:20 Hyaline Casts Moderate /LPF (NEGATIVE) 07/03/23 05:20 Urine Mucus Moderate /HPF (NEGATIVE) 07/03/23 05:20 Ur Culture Indicated? No/not indicated 07/03/23 05:20 Stl Occult Blood (IFOB) Positive (NEGATIVE) A 07/03/23 15:28 Stool for White Cells Positive (NEGATIVE) A 07/03/23 15:28 Stl C. diff Tox B Gene Negative (NEGATIVE) 07/05/23 09:30 Stl C. diff [id number] Presumptive negative (NEGATIVE) 07/05/23 09:30 SARS-CoV-2 (PCR) Negative (NEGATIVE) 07/03/23 04:44 Influenza Type A (PCR) Negative (NEGATIVE) 07/03/23 04:44 Influenza Type B (PCR) Negative (NEGATIVE) 07/03/23 04:44 RSV (PCR) Negative (NEGATIVE) 07/03/23 04:44 GI Pathogen (PCR) See scanned report 07/04/23 02:30 Plan (1) Partial obstruction of small intestine: Status: Acute (2) Incisional hernia: Status: Acute (3) Morbid obesity with BMI of 50.0-59.9, adult: Status: Acute (4) Incarcerated intra-abdominal hernia: Status: Acute (5) Diabetes mellitus: Status: Acute (6) Hyperlipidemia: Status: Acute (7) Hypertension: Status: Acute (8) GRADY (dyspnea on exertion): Status: Acute (9) Preoperative clearance: Status: Acute
--- NOTE | 2023-07-06 06:25 | PCM.PROG ---
Progress Note Progress Note for Day of Date of Exam: 07/05/23 Subjective Subjective: Patient is a 52-year-old male with past medical history of abdominal hernia repair x 3. He currently has 2 ventral hernias admitted for small bowel obstruction. This morning he is sitting at side of bed eating breakfast. He reports feeling better, tolerating po intake, and has had a bowel movement. Labs/imaging: WBC 6.7, hemoglobin 12.5, platelets 290, sodium 137, potassium 3.8, creatinine 0.70, glucose 126. General surgery has admitted patient. Medical consulted for medical management. Plan to continue with conservative treatment. Continue to closely monitor patient. Home medications have been resumed. Continue IV antibiotics Zosyn and p.o. Flagyl. Possible discharge today. Continue to closely monitor and follow-up labs/imaging in the morning. Past Medical Family Social History Allergies: Allergies No Known Drug Allergies Allergy (Verified 07/03/23 04:47) Review of Systems ROS: No change since H&P Vital Signs and I&O's Intake and Output: Intake & Output 07/03/23 07/04/23 07/05/23 07/06/23 23:59 23:59 23:59 23:59 Intake Total 587 / 587 1491 / 1491 1300 / 1300 Output Total Balance 584 / 584 1488 / 1488 1300 / 1300 Physical Exam Oriented: Normal Eyes: Normal Ear: Normal Nose: Normal Throat: Normal Cardiovascular: Normal : Normal Auscultation: Bowel Sounds: Normal Tenderness: Diffuse Skin: Normal Musculoskeletal: Normal Mood Description: Calm Speech Pattern: Clear Laboratory and Diagnostics 07/05/23 05:43 07/05/23 05:43 Labs: 07/03/23 05:25 Blood Blood Culture - Preliminary 07/03/23 05:20 Blood Blood Culture - Preliminary 07/03/23 15:28 Stool Stool Culture - Final 07/03/23 15:28 Stool - Final Laboratory WBC 6.7 X10^3/uL (3.6-10.0) 07/05/23 05:43 RBC 4.33 X10^6/uL (4.7-6.0) L 07/05/23 05:43 Hgb 12.5 g/dL (13.5-18.0) L 07/05/23 05:43 Hct 37.6 % (42.0-54.0) L 07/05/23 05:43 MCV 86.9 fL (80.0-100.0) 07/05/23 05:43 MCH 28.9 pg (27.0-34.0) 07/05/23 05:43 MCHC 33.3 g/dL (33.0-35.0) 07/05/23 05:43 RDW 13.4 % (11.6-16.5) 07/05/23 05:43 Plt Count 290 X10^3/uL (150.0-450.0) 07/05/23 05:43 MPV 7.6 fL (7.4-11.0) 07/05/23 05:43 Neut % (Auto) 58.2 % (42.0-75.0) 07/05/23 05:43 Lymph % (Auto) 29.9 % (21.0-51.0) 07/05/23 05:43 [place] % (Auto) 8.3 % (0.0-13.0) 07/05/23 05:43 Eos % (Auto) 3.0 % (0.9-2.9) H 07/05/23 05:43 Baso % (Auto) 0.6 % (0.2-1.0) 07/05/23 05:43 Neut # (Auto) 3.9 x10^3/uL (2.2-4.8) 07/05/23 05:43 Lymph # (Auto) 2.0 X10^3/uL (1.3-2.9) 07/05/23 05:43 [place] # (Auto) 0.6 x10^3/uL (0.3-0.8) 07/05/23 05:43 Eos # (Auto) 0.2 x10^3/uL (0.0-0.2) 07/05/23 05:43 Baso # (Auto) 0.0 X10^3/uL (0.0-0.1) 07/05/23 05:43 Absolute Nucleated RBC 0.0 /100WBC 07/05/23 05:43 D-Dimer 0.35 ug/ml (0.0-0.57) 07/03/23 04:50 Sample Site Lr 07/03/23 05:05 ABG pH 7.340 (7.35-7.45) L 07/03/23 05:05 ABG pCO2 41.0 mmHg (35.0-45.0) 07/03/23 05:05 ABG pO2 82.0 mmHg (80.0-100.0) 07/03/23 05:05 ABG HCO3 22.1 mmol/L (22-26) 07/03/23 05:05 ABG O2 Saturation 95.0 % (90-100) 07/03/23 05:05 ABG Base Excess -3.5 mmol/L (-2.0-2.0) L 07/03/23 05:05 Kaden Test Pos 07/03/23 05:05 A-a Gradient 16.0 mmHg 07/03/23 05:05 FiO2 21.0 07/03/23 05:05 Blood Gas Comments Davi well ae 07/03/23 05:05 Sodium 137 mmol/L (136-145) 07/05/23 05:43 Corrected Sodium 138 mmol/L (136-145) 07/05/23 05:43 Potassium 3.8 mmol/L (3.5-5.1) 07/05/23 05:43 Chloride 103 mmol/L (98-107) 07/05/23 05:43 Carbon Dioxide 25.6 mmol/L (21-32) 07/05/23 05:43 BUN 11 mg/dL (7-18) 07/05/23 05:43 Creatinine 0.70 mg/dL (0.70-1.30) 07/05/23 05:43 Est GFR (MDRD) Af Amer > 60 (>60) 07/05/23 05:43 Est GFR (MDRD) Non-Af > 60 (>60) 07/05/23 05:43 Glucose 126 mg/dL (65-99) H 07/05/23 05:43 POC Glucose (mg/dL) 150 mg/dL (65-99) H 07/05/23 11:01 Lactic Acid 2.0 mmol/L (0.4-2.0) 07/03/23 05:20 Calcium 7.9 mg/dL (8.5-10.1) L 07/05/23 05:43 Corrected Calcium 8.8 mg/dL (8.5-10.1) 07/05/23 05:43 Total Bilirubin 0.60 mg/dL (0.2-1.0) 07/05/23 05:43 AST 13 Units/L (15-37) L 07/05/23 05:43 ALT 31 Units/L (12-78) 07/05/23 05:43 Alkaline Phosphatase 67 Units/L (46-116) 07/05/23 05:43 C-Reactive Protein < 0.50 mg/L (0-3.0) 07/03/23 04:50 B-Natriuretic Peptide < 5.0 pg/mL (0-79) 07/03/23 04:50 Total Protein 6.2 g/dL (6.4-8.2) L 07/05/23 05:43 Albumin 2.9 g/dL (3.4-5.0) L 07/05/23 05:43 Globulin 3.3 g/dL (2.5-4.5) 07/05/23 05:43 Albumin/Globulin Ratio 0.9 Ratio (1.1-2.1) L 07/05/23 05:43 Amylase 44 Units/L (25-115) 07/03/23 05:20 Lipase 47 Units/L (16-77) 07/03/23 05:20 Specimen Type Clean catch urine 07/03/23 05:20 Urine Color Dark yellow (YELLOW) 07/03/23 05:20 Urine Appearance Clear (CLEAR) 07/03/23 05:20 Urine pH 5.0 (5.0 - 8.0) 07/03/23 05:20 Ur Specific [place] 1.025 (1.000-1.030) 07/03/23 05:20 Urine Protein 4+ (NEGATIVE) 07/03/23 05:20 Urine Glucose (UA) Negative (NEGATIVE) 07/03/23 05:20 Urine Ketones Negative (NEGATIVE) 07/03/23 05:20 Urine Blood 2+ (NEGATIVE) 07/03/23 05:20 Urine Nitrite Negative (NEGATIVE) 07/03/23 05:20 Urine Bilirubin Negative (NEGATIVE) 07/03/23 05:20 Urine Urobilinogen Normal (NORMAL) 07/03/23 05:20 Ur Leukocyte Esterase Negative (NEGATIVE) 07/03/23 05:20 Urine RBC 3-5 /HPF (0-3) A 07/03/23 05:20 Urine WBC 0-2 /HPF (0-5) 07/03/23 05:20 Ur Squamous Epith Cells Few /HPF (NEGATIVE) 07/03/23 05:20 Amorphous Sediment 1+ /HPF (NEGATIVE) 07/03/23 05:20 Urine Bacteria Trace /HPF (NEGATIVE) 07/03/23 05:20 Hyaline Casts Moderate /LPF (NEGATIVE) 07/03/23 05:20 Urine Mucus Moderate /HPF (NEGATIVE) 07/03/23 05:20 Ur Culture Indicated? No/not indicated 07/03/23 05:20 Stl Occult Blood (IFOB) Positive (NEGATIVE) A 07/03/23 15:28 Stool for White Cells Positive (NEGATIVE) A 07/03/23 15:28 Stl C. diff Tox B Gene Negative (NEGATIVE) 07/05/23 09:30 Stl C. diff [id number] Presumptive negative (NEGATIVE) 07/05/23 09:30 SARS-CoV-2 (PCR) Negative (NEGATIVE) 07/03/23 04:44 Influenza Type A (PCR) Negative (NEGATIVE) 07/03/23 04:44 Influenza Type B (PCR) Negative (NEGATIVE) 07/03/23 04:44 RSV (PCR) Negative (NEGATIVE) 07/03/23 04:44 GI Pathogen (PCR) See scanned report 07/04/23 02:30 Plan (1) Partial obstruction of small intestine: Status: Acute (2) Incisional hernia: Status: Acute (3) Morbid obesity with BMI of 50.0-59.9, adult: Status: Acute (4) Incarcerated intra-abdominal hernia: Status: Acute (5) Diabetes mellitus: Status: Acute (6) Hyperlipidemia: Status: Acute (7) Hypertension: Status: Acute (8) GRADY (dyspnea on exertion): Status: Acute (9) Preoperative clearance: Status: Acute
== END 2023-07-05 13:40 | disposition home or self-care (01) | DRG 389 ==
LOC: ER 04:41 → MED/SURG 08:35
PROVIDERS: ADMIT Surgery; ATTEND Surgery

== ENCOUNTER 2024-06-10 07:07 | Observation (INO) ==
[2024-06-10 07:28] VITALS: BMI 48.6
[2024-06-10] MEDS ORDERED: ZOFRAN INJ 4 MG VIAL ONE ×2 (07:47→12:17)
[2024-06-10] MEDS: ZOFRAN INJ 4 MG VIAL IVP ONE ×2 (07:48→12:22)
--- NOTE | 2024-06-10 07:59 | EKG ---
Test Reason : weakness Blood Pressure : */* mmHG Vent. Rate : 90 BPM Atrial Rate : 90 BPM P-R Int : 144 ms QRS Dur : 110 ms QT Int : 364 ms P-R-T Axes : 45 -3 41 degrees QTc Int : 445 ms Normal sinus rhythm Anterior infarct , age undetermined Abnormal ECG When compared with ECG of 03-JUL-2023 05:00, No significant change was found Confirmed by Good Ron MD ([id number]) on 06/10/2024 12:12:28 PM Referred By: Confirmed By: Good Ron MD
[2024-06-10 08:08] LABS: BASOPHILS % (AUTO) 0.2 % (0.2-1.0); EOSINOPHILS # (AUTO) 0.2 x10^3/uL (0.0-0.2); HEMATOCRIT 44.9 % (42.0-54.0); HEMOGLOBIN 15.1 g/dL (13.5-18.0); LYMPHOCYTES # (AUTO) 1.1 X10^3/uL (1.3-2.9); LYMPHOCYTES % (AUTO) 5.6 % (21.0-51.0); MEAN CORPUSCULAR HEMOGLOBIN 29.5 pg (27.0-34.0); MEAN CORPUSCULAR HGB CONC 33.7 g/dL (33.0-35.0); MEAN CORPUSCULAR VOLUME 87.7 fL (80.0-100.0); MEAN PLATELET VOLUME 7.2 fL (7.4-11.0); MONOCYTES # (AUTO) 1.2 x10^3/uL (0.3-0.8); MONOCYTES % (AUTO) 6.5 % (0.0-13.0); NEUTROPHILS # (AUTO) 16.6 x10^3/uL (2.2-4.8); NEUTROPHILS % (AUTO) 86.7 % (42.0-75.0); PLATELET COUNT 366 X10^3/uL (150.0-450.0); RED BLOOD COUNT 5.13 X10^6/uL (4.7-6.0); RED CELL DISTRIBUTION WIDTH 13.6 % (11.6-16.5); WHITE BLOOD COUNT 19.2 X10^3/uL (3.6-10.0)
--- NOTE | 2024-06-10 08:09 | DR.N/VMALE ---
[facility] Time Seen Time Seen by Provider: 06/10/24 08:08 Primary Care Physician Primary Care Physician: Dr. Bryan HPI Comment HPI Comment: Patient states he has been having abdominal pain nausea vomiting and diarrhea for the last 6 months. Patient states this time it feels worse. He has started Trulicity and is wondering if this is what is causing his symptoms. He does have history of multiple hernia repairs. On previous CT scan he was found to have some gastroparesis suspected. Patient admits to overeating despite his medications and diabetes. He states he has been throwing up since last night and having severe pain in his abdomen. He does complain of loose stools. No measured fever. Denies melena, hematochezia or hematemesis. Complaints Chief Complaint:: Patient states that for the 6 months he has been having bouts of abdominal pain, nausea, vomiting, and diarrhea that usually usually lasts around 2 or 3 days. He states that he started taking Trulicity around that time and is unsure if this is causing the issues. He states that he started throwing up last night, and has 10/10 pain in his abdomen on the right side (both upper and lower), throwing up x 3, and loose stools. He states that he is unsure if he has been running a fever or not. COVID-19 Coronavirus risk:travel/contact w/high risk person: No Has patient experienced Coronavirus symptoms: No Source History Provided: Patient Mode of Arrival Mode of Arrival: EMS Timing Onset of Chief Complaint: 06/09/24 PMH PMH Past Medical History: Yes Past Medical History: Anxiety, CHF, Diabetes, Dyslipidemia and Hypertension Past Surgical History: Yes Surgical History: Other Past Surgical History Comment: x3 hernia repairs Family History History of Family Medical Conditions: Yes Family Medical History: Diabetes Mellitus, [place], Coronary Artery Disease and H ypertension Social History Does patient currently use any type of tobacco product: No Have you used tobacco products in the last 12 months: No Type of Tobacco Use: None Does any household member use tobacco: No Alcohol Use: None Do you use any recreational Drugs:: No Lives With: Family Lives Where: Home Travel Risk Coronavirus risk:travel/contact w/high risk person: No Has patient experienced Coronavirus symptoms: No Infectious screening In the last 2 months have you had wt loss of >10#?: NO Have you had fever, night sweats or hemotysis?: No Have you traveled outside the country in the last 6 months?: No Isolation: Standard ROS Review of Systems Constitutional: No Symptoms Reported Eyes: No Symptoms Reported ENTM: No Symptoms Reported Respiratoy: No Symptoms Reported Cardiovascular: No Symptoms Reported Gastrointestinal/Abdominal: See HPI Genitourinary: No Symptoms Reported Neurological: No Symptoms Reported Musculoskeletal: No Symptoms Reported Integumentary: No Symptoms Reported Hematologic/Lymphatic: No Symptoms Reported Endocrine: No Symptoms Reported Psychiatric: No Symptoms Reported All Other Systems: Reviewed and Negative PE Vital Signs Vitals: Vital Signs Temperature 97.5 F Pulse Rate 83 Pulse Rate 83 Pulse Rate 81 Pulse Rate 84 Pulse Rate 85 Pulse Rate 88 Pulse Rate 86 Pulse Rate 90 Pulse Rate 88 Pulse Rate 89 Pulse Rate 87 Pulse Rate 90 Pulse Rate 93 Pulse Rate 85 Pulse Rate 83 Pulse Rate 83 Pulse Rate 85 Pulse Rate 86 Pulse Rate 84 Pulse Rate 86 Pulse Rate 86 Pulse Rate 86 Pulse Rate 87 Pulse Rate 90 Pulse Rate 89 Pulse Rate 89 Pulse Rate 89 Pulse Rate 92 Pulse Rate 69 Pulse Rate 92 Pulse Rate 91 Pulse Rate 91 Pulse Rate 88 Respiratory Rate 17 Respiratory Rate 16 Respiratory Rate 15 Respiratory Rate 17 Respiratory Rate 24 Respiratory Rate 20 Respiratory Rate 19 Respiratory Rate 20 Respiratory Rate 20 Respiratory Rate 21 Respiratory Rate 22 Respiratory Rate 33 Respiratory Rate 23 Respiratory Rate 22 Respiratory Rate 18 Respiratory Rate 18 Respiratory Rate 18 Respiratory Rate 18 Respiratory Rate 19 Respiratory Rate 16 Respiratory Rate 17 Respiratory Rate 17 Respiratory Rate 17 Respiratory Rate 16 Respiratory Rate 18 Respiratory Rate 16 Respiratory Rate 20 Respiratory Rate 19 Respiratory Rate 21 Respiratory Rate 18 Blood Pressure 122/57 Blood Pressure 129/68 Blood Pressure 132/63 Blood Pressure 127/63 Blood Pressure 152/65 Blood Pressure 104/54 Blood Pressure 97/52 Blood Pressure 114/59 Blood Pressure 124/63 Blood Pressure 92/55 Blood Pressure 89/54 Blood Pressure 126/65 Blood Pressure 120/67 O2 Sat by Pulse Oximetry 93 O2 Sat by Pulse Oximetry 90 O2 Sat by Pulse Oximetry 96 O2 Sat by Pulse Oximetry 91 O2 Sat by Pulse Oximetry 94 O2 Sat by Pulse Oximetry 95 O2 Sat by Pulse Oximetry 95 O2 Sat by Pulse Oximetry 95 O2 Sat by Pulse Oximetry 94 O2 Sat by Pulse Oximetry 96 O2 Sat by Pulse Oximetry 97 O2 Sat by Pulse Oximetry 94 O2 Sat by Pulse Oximetry 94 O2 Sat by Pulse Oximetry 95 O2 Sat by Pulse Oximetry 95 O2 Sat by Pulse Oximetry 97 O2 Sat by Pulse Oximetry 96 O2 Sat by Pulse Oximetry 96 O2 Sat by Pulse Oximetry 95 O2 Sat by Pulse Oximetry 96 O2 Sat by Pulse Oximetry 95 O2 Sat by Pulse Oximetry 94 O2 Sat by Pulse Oximetry 92 O2 Sat by Pulse Oximetry 95 O2 Sat by Pulse Oximetry 93 O2 Sat by Pulse Oximetry 89 O2 Sat by Pulse Oximetry 94 O2 Sat by Pulse Oximetry 92 O2 Sat by Pulse Oximetry 94 O2 Sat by Pulse Oximetry 99 O2 Sat by Pulse Oximetry 94 General Limitations: No Limitations General Appearance: Alert and In No Apparent Distress Head Head Exam: Normal Inspection Eyes Eye exam: Normal Appearance ENT ENT Exam: Normal Exam Neck Neck Exam: Normal Inspection Chest Chest Inspection: Normal Inspection Respiratory Respiratory Exam: Normal Lung Sounds Bilat Respiratory Exam: Bilateral: Clear to Auscultation Cardiovascular Cardiovascular Exam: Regular Rate and Normal Rhythm Abdominal Exam Abdominal Exam: Normal Bowel Sounds, Soft, Tenderness and Hernia (Multiple hernias with no sign of incarceration or strangulation.); negative Guarding, Rebound or Rigidity Rectal Rectal Exam: Deferred Exam: Male: Deferred Extremities Extremities Exam: Normal Inspection Back Back Exam: Normal Inspection Neurologic Neurological Exam: Alert and Oriented X3 Psychiatric Psychiatric Exam: Normal Affect and Normal Mood Skin Skin Exam: Warm, Dry, Intact and Normal Color COURSE Treatment Treatment: Lactic acid improved with fluids and antibiotics. Patient's condition has improved. Discussed labs and imaging results with patient. Reevaluation 1st: Improved Consultation Called: 14:11 Consultation Comments: Discussed case with Dr. Lemos. He is agreeable to admission. Discussed labs and imaging findings. Discussed sepsis of unknown origin with elevated lactic acid and abdominal pain. He is agreeable to continue antibiotics Vanco and Zosyn. [facility]OR Labs Reviewed 06/10/24 07:57 06/10/24 07:57 Laboratory: WBC 19.2 X10^3/uL (3.6-10.0) H 06/10/24 07:57 RBC 5.13 X10^6/uL (4.7-6.0) 06/10/24 07:57 Hgb 15.1 g/dL (13.5-18.0) 06/10/24 07:57 Hct 44.9 % (42.0-54.0) 06/10/24 07:57 MCV 87.7 fL (80.0-100.0) 06/10/24 07:57 MCH 29.5 pg (27.0-34.0) 06/10/24 07:57 MCHC 33.7 g/dL (33.0-35.0) 06/10/24 07:57 RDW 13.6 % (11.6-16.5) 06/10/24 07:57 Plt Count 366 X10^3/uL (150.0-450.0) 06/10/24 07:57 MPV 7.2 fL (7.4-11.0) L 06/10/24 07:57 Neut % (Auto) 86.7 % (42.0-75.0) H 06/10/24 07:57 Lymph % (Auto) 5.6 % (21.0-51.0) L 06/10/24 07:57 [place] % (Auto) 6.5 % (0.0-13.0) 06/10/24 07:57 Eos % (Auto) 1.0 % (0.9-2.9) 06/10/24 07:57 Baso % (Auto) 0.2 % (0.2-1.0) 06/10/24 07:57 Neut # (Auto) 16.6 x10^3/uL (2.2-4.8) H 06/10/24 07:57 Lymph # (Auto) 1.1 X10^3/uL (1.3-2.9) L 06/10/24 07:57 [place] # (Auto) 1.2 x10^3/uL (0.3-0.8) H 06/10/24 07:57 Eos # (Auto) 0.2 x10^3/uL (0.0-0.2) 06/10/24 07:57 Baso # (Auto) 0.0 X10^3/uL (0.0-0.1) 06/10/24 07:57 Absolute Nucleated RBC 0.1 /100WBC 06/10/24 07:57 Sodium 140 mmol/L (136-145) 06/10/24 07:57 Corrected Sodium 141 mmol/L (136-145) 06/10/24 07:57 Potassium 3.8 mmol/L (3.5-5.1) 06/10/24 07:57 Chloride 103 mmol/L (98-107) 06/10/24 07:57 Carbon Dioxide 23.5 mmol/L (21-32) 06/10/24 07:57 BUN 26 mg/dL (7-18) H 06/10/24 07:57 Creatinine 1.45 mg/dL (0.70-1.30) H 06/10/24 07:57 Est GFR (MDRD) Af Amer > 60 (>60) 06/10/24 07:57 Est GFR (MDRD) Non-Af 54 (>60) L 06/10/24 07:57 Glucose 154 mg/dL (65-99) H 06/10/24 07:57 Lactic Acid 2.1 mmol/L (0.4-2.0) H 06/10/24 11:26 Calcium 8.7 mg/dL (8.5-10.1) 06/10/24 07:57 Corrected Calcium TNP 06/10/24 07:57 Magnesium 1.4 mg/dL (2.0-2.9) L 06/10/24 07:57 Total Bilirubin 0.80 mg/dL (0.2-1.0) 06/10/24 07:57 AST 20 Units/L (15-37) 06/10/24 07:57 ALT 40 Units/L (12-78) 06/10/24 07:57 Alkaline Phosphatase 75 Units/L (46-116) 06/10/24 07:57 Troponin I High Sens 6.8 ng/L (4.0-60.0) 06/10/24 07:57 Total Protein 7.4 g/dL (6.4-8.2) 06/10/24 07:57 Albumin 3.8 g/dL (3.4-5.0) 06/10/24 07:57 Globulin 3.6 g/dL (2.5-4.5) 06/10/24 07:57 Albumin/Globulin Ratio 1.1 Ratio (1.1-2.1) 06/10/24 07:57 Amylase 38 Units/L (25-115) 06/10/24 07:57 Lipase 49 Units/L (16-77) 06/10/24 07:57 Specimen Type Clean catch urine 06/10/24 08:50 Urine Color Yellow (YELLOW) 06/10/24 08:50 Urine Appearance Clear (CLEAR) 06/10/24 08:50 Urine pH 5.0 (5.0 - 8.0) 06/10/24 08:50 Ur Specific [place] 1.020 (1.000-1.030) 06/10/24 08:50 Urine Protein 3+ (NEGATIVE) 06/10/24 08:50 Urine Glucose (UA) Negative (NEGATIVE) 06/10/24 08:50 Urine Ketones Negative (NEGATIVE) 06/10/24 08:50 Urine Blood 1+ (NEGATIVE) 06/10/24 08:50 Urine Nitrite Negative (NEGATIVE) 06/10/24 08:50 Urine Bilirubin Negative (NEGATIVE) 06/10/24 08:50 Urine Acetone Small (NEGATIVE) 06/10/24 08:50 Urine Urobilinogen Normal (NORMAL) 06/10/24 08:50 Ur Leukocyte Esterase Negative (NEGATIVE) 06/10/24 08:50 Urine RBC 0-2 /HPF (0-3) 06/10/24 08:50 Urine WBC 0-2 /HPF (0-5) 06/10/24 08:50 Ur Squamous Epith Cells Rare /HPF (NEGATIVE) 06/10/24 08:50 Urine Bacteria Trace /HPF (NEGATIVE) 06/10/24 08:50 Hyaline Casts Few /LPF (NEGATIVE) 06/10/24 08:50 Urine Mucus Few /HPF (NEGATIVE) 06/10/24 08:50 Ur Culture Indicated? No/not indicated 06/10/24 08:50 Opioid Opioid Risk Tool Age (Gopal box if 16-45): No History of Preadolescent Sexual Abuse: No Total: 0 Total Score Risk Category: Low Risk Copyright: Deejay REY predicting aberrant behaviors Discharge Plan Diagnosis Discharge Problem: Diabetes mellitus, Abdominal pain, Elevated lactic acid level Sepsis Qualifiers: Severe sepsis shock status: without septic shock Discharge Plan Patient Disposition: 09 ADMITTED INPATIENT Condition: Stable Prescriptions: No Action atorvastatin [Lipitor] 40 mg tablet 40 mg PO QHS 90 Days Qty: 90 0RF lisinopril 40 mg tablet 40 mg PO DAILY 30 Days Qty: 30 3RF furosemide 40 mg tablet 40 mg PO QDAY 30 Days Qty: 30 3RF Trulicity 1.5 mg/0.5 mL pen injector 1.5 mg SUBCUT QWEEK amlodipine 10 mg tablet 10 mg PO DAILY Ozempic 0.25 mg or 0.5 mg (2 mg/3 mL) pen injector 0.25 mg SUBCUT QWEEK Health Concerns: Post Hospitalization: new medications and changes needed to prevent readmission or further decline. Pt educated and given instructions on all concerns. Plan of Treatment: Continue with present treatment and follow up plan. Pt is to keep follow up appointment as instructed and take medications as ordered. Orders to Discharge Patient Discharge Orders: Transfer (Routine); Ordered 06/10/24 Ordered By: Bakari Monroy Follow ups/Referrals Follow ups/Referrals: NFD,None [Primary Care Provider] - 3 days Instructions Stand Alone Forms: Find Help Web Site, Post Hospital Follow Up Care
[2024-06-10] MEDS: TORADOL 30 MG VIAL IM ONE (08:28)
[2024-06-10] MEDS: BENADRYL INJ 50 MG VIAL IVP ONE (08:31)
[2024-06-10] MEDS: NS 1,000 ML IV 1,000 ML IV ONE (08:31)
[2024-06-10] MEDS: MAGNESIUM SULFATE 1 GRAM/100 mL PREMIX 1 G/100 ML BAG IV ONE (08:32)
[2024-06-10 08:34] LABS: ALANINE AMINOTRANSFERASE 40 Units/L (12-78); ALBUMIN 3.8 g/dL (3.4-5.0); ALKALINE PHOSPHATASE 75 Units/L (46-116); AMYLASE 38 Units/L (25-115); ASPARTATE AMINO TRANSFERASE 20 Units/L (15-37); BLOOD UREA NITROGEN 26 mg/dL (7-18); CALCIUM 8.7 mg/dL (8.5-10.1); CARBON DIOXIDE 23.5 mmol/L (21-32); CHLORIDE 103 mmol/L (98-107); COR NA(FOR HYPERGLY) 141 mmol/L (136-145); CREATININE 1.45 mg/dL (0.70-1.30); GLUCOSE 154 mg/dL (65-99); LIPASE 49 Units/L (16-77); MAGNESIUM 1.4 mg/dL (2.0-2.9); POTASSIUM 3.8 mmol/L (3.5-5.1); SODIUM 140 mmol/L (136-145); TOTAL PROTEIN 7.4 g/dL (6.4-8.2); eGFR NON BLACK RACES 54 (>60)
[2024-06-10 09:22] LABS: BILIRUBIN,URINE NEGATIVE (NEGATIVE); BLOOD/HEMOGLOBIN,URINE 1+ (NEGATIVE); GLUCOSE, URINE NEGATIVE (NEGATIVE); KETONES,URINE NEGATIVE (NEGATIVE); LEUKOCYTE ESTERASE ,URINE NEGATIVE (NEGATIVE); NITRITES,URINE NEGATIVE (NEGATIVE); PROTEIN,URINE 3+ (NEGATIVE); UROBILINOGEN,URINE NORMAL (NORMAL)
[2024-06-10] MEDS ORDERED: ZOSYN VIAL 3.375 GRAMS IV ONE (09:22)
[2024-06-10] MEDS ORDERED: VANCOMYCIN HCL ONE (09:22)
[2024-06-10] MEDS ORDERED: NS 100 ML IV 100 ML ONE (09:22)
[2024-06-10] MEDS ORDERED: D5W 250 ML IV 250 ML IV ONE (09:23)
[2024-06-10 09:24] LABS: APPEARANCE,URINE CLEAR (CLEAR); COLOR,URINE YELLOW (YELLOW)
[2024-06-10 09:30] LABS: RBC,URINE 0-2 /HPF (0-3)
[2024-06-10 09:31] LABS: BACTERIA,URINE TRACE /HPF (NEGATIVE); HYALINE CASTS, URINE FEW /LPF (NEGATIVE); SQUAMOUS EPITHELIAL CELL,UR RARE /HPF (NEGATIVE)
[2024-06-10] MEDS: VANCOMYCIN HCL 1 G in D5W 250 ML IV 250 ML IV ONE (09:34)
[2024-06-10] MEDS: ZOSYN VIAL 3.375 GRAMS 3.375 G in NS 100 ML IV 100 ML IV ONE (09:34)
--- NOTE | 2024-06-10 09:43 | CT ---
EXAM:CT abdomen pelvis without contrastHISTORY:Abdominal painTECHNIQUE:Axial noncontrast images with coronal and sagittal reformats. Dose reduction procedures were used with mA/kv adjusted for body size. This examination is limited due to the lack of intravenous and oral contrast. The examination was performed in this non unenhanced manner at the SOLE direction of the ordering caregiver. Radiology was afforded no input.COMPARISON:05/11/2024 and multiple priorsFINDINGS:Lung bases are free of acute infiltrates. There is small peripheral left lower lobe pulmonary nodule unchanged since 04/10/2020 and benign. The liver, spleen, left adrenal gland, and pancreas are within normal limits but only to the limitations an unenhanced examination. There is a 2.45 cm indeterminate right adrenal nodule which has gradually increased in size since 04/10/2020. The slow growth would suggest a benign process however correlation with MRI is recommended. No opaque stones are present within the gallbladder. Kidneys are unobstructed and without stones or masses. No ureteral calculi are identified. The stomach is mildly distended with gas food matter and fluid which could be on the basis of gastroparesis or recent ingestion. Mild calcific atherosclerotic changes present in the nondilated abdominal aorta. No enlarged intraperitoneal or retroperitoneal lymphadenopathy identified. There are no findings suggestive of enteritis, colitis, or diverticulitis. There has been a slight increase in size of the patient's complex right-sided paramedian lower abdominal ventral hernia which contains nondilated small bowel. No evidence for small bowel obstruction identified. No pelvic masses, pelvic fluid, or pelvic lymphadenopathy is identified. Evaluation of the bladder is limited as it was nearly empty. No lytic or blastic skeletal lesions of significance identified.IMPRESSION:No acute inflammatory process identified within the abdomen or pelvis but only to the limitations of an examination performed without intravenous and without oral contrastSlight increase in size of the patient's complex right paramedian lower abdominal ventral hernia containing mesenteric fat and nonobstructed small bowel. No evidence for strangulation or small bowel obstruction. Incarceration should be clinically excluded.Slight increase in size of the patient's previously known and described indeterminate right adrenal nodule when compared to multiple examinations dating back to 2023. The minimal and slow growth suggests benignity however correlation with MRI should still be considered.THIS IS AN ELECTRONICALLY VERIFIED FINAL [id number]/10/2024 9:29 AM - Electronically signed by Tim Ashby MD
--- NOTE | 2024-06-10 12:24 | US ---
EXAM:Ultrasound groinHISTORY:Groin and testicular painTECHNIQUE:Multiple grayscale sonographic images were obtained.COMPARISON:NoneFINDINGS:Sonogra phic evaluation of both groins failed to demonstrate abnormal mass, hernia, cyst, or vascular abnormality.IMPRESSION:No significant abnormality identifiedTHIS IS AN ELECTRONICALLY VERIFIED FINAL [id number]/10/2024 12:13 PM - Electronically signed by Tim Ashby MD
[2024-06-10] MEDS ORDERED: ZOFRAN INJ 4 MG VIAL IVP PRN (15:41)
[2024-06-10] MEDS ORDERED: PHARMACY CONSULT - VANCOMYCIN XX SCH (15:41)
[2024-06-10] MEDS ORDERED: ZOFRAN TAB 4 MG SL PRN (15:41)
[2024-06-10] MEDS ORDERED: NS 250 ML IV 25 ML IV PRN (15:41)
--- NOTE | 2024-06-10 16:12 | US ---
EXAM:TESTICULAR ultrasoundHISTORY:GROIN AND TESTICULAR PAIN, MALAISE, N/V, INFECTION -COMPARISON:None.TECHNIQUE:Multiple cortez scale and Doppler images of the scrotal contents are obtained with image documentation.FINDINGS:The right testicle measures 4.6 x 2.2 x 2.6 cm. The left testicle measures 4.0 x 2.6 x 3.5 cm. Testicular echogenicity is normal. Normal Doppler flow in the testicles.Epididymides are normal in size. Head of the right epididymis appears slightly hypoechoic compared to the left side but this could be due to technical factors or a small spermatocele. Small right hydrocele with complex fluid.IMPRESSION:Small right hydrocele is seen with complex fluid. No evidence of orchitis or acute epididymitis is seen. No scrotal wall infection is identified.THIS IS AN ELECTRONICALLY VERIFIED FINAL [id number]/10/2024 4:09 PM - Electronically signed by Navdeep Strickland MD
[2024-06-10] MEDS ORDERED: NS 50 ML IV 50 ML IV ONE (16:36)
[2024-06-10] MEDS ORDERED: NS 1,000 ML IV 0 ML ONE (16:36)
[2024-06-10] MEDS ORDERED: NS 250 ML IV 250 ML IV ONE (16:44)
[2024-06-10] MEDS: NS 1,000 ML IV 1,000 ML IV SCH (16:51)
[2024-06-10] MEDS: VANCOMYCIN HCL 1 G in D5W 250 ML IV 250 ML IV SCH (16:51)
[2024-06-10] MEDS: ASCORBIC ACID INJ MULTI-DOSE VIAL 3,000 MG in NS 50 ML IV 50 ML IV SCH (17:43)
[2024-06-10] MEDS: ZOSYN VIAL 3.375 GRAMS 3.375 G in NS 100 ML IV 100 ML IV SCH (18:53)
[2024-06-10] MEDS ORDERED: NovoLIN R (or HumuLIN R) SUBCUT PRN (19:30)
[2024-06-10] MEDS: SNACK - Diabetic Appropriate PO SCH (19:51)
[2024-06-10] MEDS: THIAMINE HCL INJ IVP SCH (20:05)
[2024-06-10] MEDS: TYLENOL 325 MG TAB PO PRN (20:07)
[2024-06-11] MEDS ORDERED: NS 50 ML IV 0 ML IV ONE ×2 (02:01→09:44)
[2024-06-11] MEDS ORDERED: PHARMACY COMMENT IV NR (05:00)
[2024-06-11 06:11] LABS: BASOPHILS % (AUTO) 0.4 % (0.2-1.0); EOSINOPHILS # (AUTO) 0.3 x10^3/uL (0.0-0.2); EOSINOPHILS % (AUTO) 4.1 % (0.9-2.9); HEMATOCRIT 38.3 % (42.0-54.0); HEMOGLOBIN 13.2 g/dL (13.5-18.0); LYMPHOCYTES # (AUTO) 1.6 X10^3/uL (1.3-2.9); LYMPHOCYTES % (AUTO) 19.8 % (21.0-51.0); MEAN CORPUSCULAR HGB CONC 34.4 g/dL (33.0-35.0); MEAN CORPUSCULAR VOLUME 87.1 fL (80.0-100.0); MEAN PLATELET VOLUME 7.3 fL (7.4-11.0); MONOCYTES # (AUTO) 0.5 x10^3/uL (0.3-0.8); MONOCYTES % (AUTO) 6.9 % (0.0-13.0); NEUTROPHILS # (AUTO) 5.4 x10^3/uL (2.2-4.8); NEUTROPHILS % (AUTO) 68.8 % (42.0-75.0); PLATELET COUNT 282 X10^3/uL (150.0-450.0); RED BLOOD COUNT 4.39 X10^6/uL (4.7-6.0); RED CELL DISTRIBUTION WIDTH 13.8 % (11.6-16.5); WHITE BLOOD COUNT 7.9 X10^3/uL (3.6-10.0)
[2024-06-11 06:26] LABS: CREATININE 0.77 mg/dL (0.70-1.30); VANCOMYCIN,TROUGH 8.6 ug/mL (15-20)
[2024-06-11 06:29] LABS: ALANINE AMINOTRANSFERASE 32 Units/L (12-78); ALKALINE PHOSPHATASE 62 Units/L (46-116); ASPARTATE AMINO TRANSFERASE 15 Units/L (15-37); BLOOD UREA NITROGEN 18 mg/dL (7-18); CALCIUM 8.2 mg/dL (8.5-10.1); CARBON DIOXIDE 27.9 mmol/L (21-32); CHLORIDE 107 mmol/L (98-107); COR NA(FOR HYPERGLY) 142 mmol/L (136-145); CREATININE 0.77 mg/dL (0.70-1.30); GLUCOSE 113 mg/dL (65-99); MAGNESIUM 1.6 mg/dL (2.0-2.9); POTASSIUM 4.3 mmol/L (3.5-5.1); SODIUM 142 mmol/L (136-145); TOTAL PROTEIN 6.1 g/dL (6.4-8.2); eGFR NON BLACK RACES > 60 (>60)
[2024-06-11] MEDS: NS 1,000 ML IV 1,000 ML with MAGNESIUM SULFATE 50% INJ VIAL 1 G IV SCH (07:55)
[2024-06-11 08:02] VITALS: RESP 18
[2024-06-11 09:10] LABS: BILIRUBIN,URINE NEGATIVE (NEGATIVE); BLOOD/HEMOGLOBIN,URINE NEGATIVE (NEGATIVE); GLUCOSE, URINE NEGATIVE (NEGATIVE); KETONES,URINE NEGATIVE (NEGATIVE); LEUKOCYTE ESTERASE ,URINE NEGATIVE (NEGATIVE); NITRITES,URINE NEGATIVE (NEGATIVE); PROTEIN,URINE 1+ (NEGATIVE); UROBILINOGEN,URINE NORMAL (NORMAL)
[2024-06-11 09:14] LABS: APPEARANCE,URINE CLEAR (CLEAR); COLOR,URINE STRAW (YELLOW)
[2024-06-11 09:21] LABS: RBC,URINE NONE SEEN /HPF (0-3); SQUAMOUS EPITHELIAL CELL,UR RARE /HPF (NEGATIVE)
[2024-06-11 09:22] LABS: BACTERIA,URINE NEGATIVE /HPF (NEGATIVE)
[2024-06-11] MEDS: VANCOMYCIN HCL 250 MG, VANCOMYCIN HCL 1 G in D5W 250 ML IV 250 ML IV SCH (10:15)
[2024-06-11] MEDS: NORVASC TAB 10 MG PO SCH (10:15)
[2024-06-11] MEDS: ZESTRIL TAB 40 MG PO SCH (10:15)
[2024-06-11 13:03] VITALS: BP 126/72; PULSE 80; TEMP 98.1; O2SAT 97
[2024-06-11] MEDS: VANCOMYCIN IV *PREMIX 1.25 G/250 ML BAG 1.25 G/250 ML PIGGYBACK IV SCH (14:15)
== END 2024-06-11 14:35 | disposition home or self-care (01) ==
LOC: ER 07:07 → MED/SURG 14:31 → INTOOBSV 14:31 → MED/SURG 14:52
PROVIDERS: ADMIT Obstetrics & Gynecology Obstetrics; ATTEND Obstetrics & Gynecology Obstetrics
DX: Z59.12 Inadequate housing utilities; F41.8 Other specified anxiety disorders; E83.42 Hypomagnesemia; R11.2 Nausea with vomiting, unspecified; E11.65 Type 2 diabetes mellitus with hyperglycemia; Z59.41 Food insecurity; R53.1 Weakness; I10 Essential (primary) hypertension; R19.7 Diarrhea, unspecified; N28.89 Other specified disorders of kidney and ureter; T50.995A Adverse effect of other drugs, medicaments and biological substances, initial encounter; N43.2 Other hydrocele; R79.89 Other specified abnormal findings of blood chemistry; R94.31 Abnormal electrocardiogram [ECG] [EKG]; Z59.86 Financial insecurity; N50.819 Testicular pain, unspecified; E78.5 Hyperlipidemia, unspecified; R10.84 Generalized abdominal pain; Z59.89 Other problems related to housing and economic circumstances

== ENCOUNTER 2025-01-01 21:08 | Observation (INO) ==
[2025-01-01] MEDS: DUONEB 0.5 MG/3 MG (3 mL) NEB ONE (21:27)
--- NOTE | 2025-01-01 21:30 | EKG ---
Test Reason : sob Blood Pressure : */* mmHG Vent. Rate : 116 BPM Atrial Rate : 116 BPM P-R Int : 130 ms QRS Dur : 102 ms QT Int : 330 ms P-R-T Axes : * 211 132 degrees QTc Int : 458 ms Sinus tachycardia Right superior axis deviation Low voltage QRS Inferior infarct , age undetermined Abnormal ECG When compared with ECG of 10-JUN-2024 07:54, QRS axis shifted left Inferior infarct is now present T wave inversion now evident in Lateral leads Confirmed by Good Ron MD ([id number]) on 01/02/2025 5:40:02 AM Referred By: Confirmed By: Good Ron MD
[2025-01-01 21:49] LABS: MEAN PLATELET VOLUME 7.2 fL (7.4-11.0); RED CELL DISTRIBUTION WIDTH 13.5 % (11.6-16.5)
[2025-01-01 22:05] LABS: COR CA(FOR HYPOALB) 8.8 mg/dL (8.5-10.1); COR NA(FOR HYPERGLY) 134 mmol/L (136-145); CREATININE 0.88 mg/dL (0.70-1.30); eGFR NON BLACK RACES > 60 (>60)
[2025-01-01] MEDS: NS 1,000 ML IV 1,000 ML IV ONE (22:28)
[2025-01-01 23:30] LABS: BLOOD/HEMOGLOBIN,URINE 1+ (NEGATIVE); LEUKOCYTE ESTERASE ,URINE NEGATIVE (NEGATIVE); NITRITES,URINE NEGATIVE (NEGATIVE)
[2025-01-01 23:39] LABS: APPEARANCE,URINE CLEAR (CLEAR); SQUAMOUS EPITHELIAL CELL,UR RARE /HPF (NEGATIVE)
--- NOTE | 2025-01-02 00:43 | CT ---
CT ABDOMEN AND PELVIS WITHOUT CONTRAST HISTORY: Abdominal pain COMPARISON: None TECHNIQUE: Axial images were obtained of the abdomen and pelvis without IV contrast. Sagittal and coronal reformatted images were provided. All images were reviewed in a variety of windows and levels. RADIATION REDUCTION TECHNIQUE: Automated exposure control, adjustment of the mA or kV according to patient size, or iterative reconstruction techniques were used. FINDINGS: Please note that lack of IV contrast does limit evaluation of the soft tissues and vascular detail. The visualized lower lung zones are clear. The heart size is within normal limits. There is no evidence of a pericardial effusion. The liver, spleen, pancreas, left adrenal gland, and kidneys are grossly unremarkable. The gallbladder is grossly unremarkable. There is a 3 cm right adrenal nodule which does not fulfill the criteria for benign adrenal adenoma. However statistically these remains a benign adrenal adenoma and therefore follow-up may be obtained as clinically indicated. There is no evidence of stones or signs of obstructive uropathy. The stomach, small bowel, and colon are grossly unremarkable. There is a large anterior abdominal hernia containing omentum and bowel without definitive inflammatory changes. There is some edema and stranding in the subcutaneous tissues that are located directly anterior to the hernia sac. There are no inflammatory changes in the right lower quadrant to suggest secondary signs of acute appendicitis. The appendix is not visualized on this exam. There is no evidence of retroperitoneal or mesenteric lymphadenopathy. The visualized bones demonstrate degenerative changes. There are no concerning lytic or blastic lesions identified. IMPRESSION: 1. There is a 3 cm right adrenal nodule which does not fulfill the criteria for benign adrenal adenoma. However statistically these remains a benign adrenal adenoma and therefore follow-up may be obtained as clinically indicated. 2. There is a large anterior abdominal hernia containing omentum and bowel without definitive inflammatory changes. There is some edema and stranding in the subcutaneous tissues that are located directly anterior to the hernia sac. 3. There is no evidence of stones or signs of obstructive uropathy. THIS IS AN ELECTRONICALLY VERIFIED FINAL REPORT 01/02/2025 12:39 AM - Electronically signed by [place] MD
--- NOTE | 2025-01-02 01:06 | CT ---
EXAM: CT CHEST WITHOUT CONTRAST HISTORY: Shortness of breath COMPARISON: None. TECHNIQUE: Axial images were acquired of the chest without IV contrast. Sagittal and coronal reformatted images were provided. All images were reviewed in a variety of windows and levels. 3D MIPS were performed and reviewed. RADIATION REDUCTION TECHNIQUE: Automated exposure control, Adjustment of the mA and/or kV according to patient size, or iterative reconstruction techniques were used. FINDINGS: CHEST: Please note that lack of IV contrast limits evaluation of soft tissue structures and vascular detail THYROID GLAND: The thyroid gland is grossly unremarkable. HEART AND VESSELS: The heart size is within normal limits. There is no evidence of a pericardial effusion. The thoracic aorta is normal is size without evidence of an aneurysm. The main pulmonary artery size is within normal limits. LYMPHNODES: There is no evidence of axillary, mediastinal, or hilar lymphadenopathy. AIRWAY: The trachea and mainstem bronchi are patent. There are no intraluminal lesions seen. LUNGS: The lungs are clear. No focal consolidation, pleural effusion, or pneumothorax is seen. 2 mm calcified nodule located in the left lower lung zone is most likely from prior granulomatous disease. ESOPHAGUS: The esophagus is grossly unremarkable. BONES: The visualized bones demonstrate degenerative changes. There are no concerning lytic or blastic lesions identified. UPPER ABDOMINAL STRUCTURES: The visualized portions of the upper abdominal structures demonstrates an incidental finding of a 20 mm right adrenal nodule which is incompletely characterized because it measures 14 Hounsfield units but statistically most likely represents a benign adrenal adenoma. IMPRESSION: 1. The lungs are clear. 2. The heart size is within normal limits. THIS IS AN ELECTRONICALLY VERIFIED FINAL REPORT 01/02/2025 1:02 AM - Electronically signed by [place] MD
[2025-01-02] MEDS: ZOSYN VIAL 3.375 GRAMS 3.375 G in NS 100 ML IV 100 ML IV ONE (01:29)
[2025-01-02] MEDS: VANCOMYCIN IV *PREMIX 1 G/200 ML BAG 1 G/200 ML PIGGYBACK IV ONE ×2 (01:32→07:23)
[2025-01-02] MEDS: TORADOL 30 MG VIAL IVP ONE (01:32)
--- NOTE | 2025-01-02 01:37 | DR.SOBA ---
HPI Time Seen Time Seen by Provider: 01/01/25 22:01 Primary Care Physician Primary Care Physician: Tosin Gonsales HPI Comment HPI Comment: Patient states she had some shortness of breath, swelling, chills and abdominal pain for 2 days. Patient states he trying to get scheduled for surgery to fix his abdominal hernia. Patient states he has had multiple repairs. Patient states he had sharp pain in his left wrist but has resolved completely by now. Patient states he did not injure it in any way and it has resolved at this time. Complaints Chief Complaint:: pt burng in by ems with complaints of sob,swelling,chills,shaking and abd pain x2 days. pts 02 on room air was 88% pt was placed on 2l nc 02 now 95%. also states hes having sharp left wrist pain. COVID-19 Coronavirus risk:travel/contact w/high risk person: No Has patient experienced Coronavirus symptoms: No Source History Provided: Patient and EMS Mode of Arrival Mode of Arrival: EMS Timing Onset of Chief Complaint: 12/31/24 PMH PMH Past Medical History: Yes Past Medical History: Anxiety, CHF, Diabetes, Dyslipidemia and Hypertension Past Surgical History: Yes Surgical History: Other Family History History of Family Medical Conditions: Yes Family Medical History: Diabetes Mellitus, [place], Coronary Artery Disease and Hypertension Social History Do you use any recreational Drugs:: No Travel Risk Coronavirus risk:travel/contact w/high risk person: No Has patient experienced Coronavirus symptoms: No Infectious screening Have you traveled outside the country in the last 6 months?: No Isolation: Standard ROS Review of Systems Constitutional: No Symptoms Reported Eyes: No Symptoms Reported ENTM: No Symptoms Reported Respiratoy: See HPI, Short of Breath and Wheezing Cardiovascular: No Symptoms Reported; negative Chest Pain, Edema, Palpitations or Syncope Gastrointestinal/Abdominal: See HPI and Abdominal Pain; negative Constipation, Diarrhea, Nausea or Vomiting Genitourinary: No Symptoms Reported Neurological: No Symptoms Reported Musculoskeletal: No Symptoms Reported Integumentary: No Symptoms Reported Hematologic/Lymphatic: No Symptoms Reported Endocrine: No Symptoms Reported Psychiatric: No Symptoms Reported All Other Systems: Reviewed and Negative PE Vital Signs Vitals: Vital Signs Temperature 99.2 F Pulse Rate 109 Pulse Rate 114 Pulse Rate 109 Pulse Rate 104 Pulse Rate 105 Pulse Rate 106 Pulse Rate 108 Pulse Rate 108 Pulse Rate 108 Pulse Rate 109 Pulse Rate 112 Pulse Rate 111 Pulse Rate 114 Pulse Rate 117 Pulse Rate 113 Pulse Rate 116 Pulse Rate 114 Pulse Rate 117 Pulse Rate 117 Pulse Rate 117 Pulse Rate 116 Pulse Rate 114 Respiratory Rate 24 Respiratory Rate 29 Respiratory Rate 27 Respiratory Rate 21 Respiratory Rate 21 Respiratory Rate 21 Respiratory Rate 20 Respiratory Rate 12 Respiratory Rate 24 Respiratory Rate 19 Respiratory Rate 16 Respiratory Rate 30 Respiratory Rate 45 Respiratory Rate 26 Blood Pressure 131/78 Blood Pressure 122/55 Blood Pressure 122/55 O2 Sat by Pulse Oximetry 96 O2 Sat by Pulse Oximetry 94 O2 Sat by Pulse Oximetry 97 O2 Sat by Pulse Oximetry 96 O2 Sat by Pulse Oximetry 95 O2 Sat by Pulse Oximetry 93 O2 Sat by Pulse Oximetry 90 O2 Sat by Pulse Oximetry 93 O2 Sat by Pulse Oximetry 94 O2 Sat by Pulse Oximetry 94 O2 Sat by Pulse Oximetry 94 O2 Sat by Pulse Oximetry 94 General Limitations: No Limitations General Appearance: Alert and In No Apparent Distress Head Head Exam: Normal Inspection Eyes Eye exam: Normal Appearance ENT ENT Exam: Normal Exam Neck Neck Exam: Normal Inspection Chest Chest Inspection: Normal Inspection Respiratory Respiratory Exam: negative Respiratory Distress Respiratory Exam: Bilateral: Wheezing (Very mild) Cardiovascular Cardiovascular Exam: Regular Rate and Normal Rhythm Abdominal Exam Abdominal Exam: Normal Bowel Sounds, Soft, Tenderness and Mass (Large incisional hernia. Not strangulated not incarcerated); negative Distention, Guarding, Rebound or Rigidity Extremities Extremities Exam: Normal Inspection; negative Edema Back Back Exam: Normal Inspection Neurologic Neurological Exam: Alert and Oriented X3 Psychiatric Psychiatric Exam: Normal Affect and Normal Mood Skin Skin Exam: Warm, Dry, Intact and Normal Color COURSE Treatment Treatment: Discussed results of workup with patient. Lactic acid borderline at 2.0 and improved at 1.4 with fluids. Suspect may be related to medications and WBC slightly elevated at 13.1. I do not believe this is a true sepsis however given the edema and stranding on CT scan, we have started Vanco and Zosyn. Suspect shortness of breath is related due to his large size. Breathing is clear after getting breathing treatment. Reevaluation 1st: Improved Consultation Called: 01:48 Consultation Comments: Discussed case with Dr. Du and he is agreeable with admission ROR Labs Reviewed 01/01/25 21:30 01/01/25 21:30 Laboratory: WBC 13.1 X10^3/uL (3.6-10.0) H 01/01/25 21:30 RBC 4.61 X10^6/uL (4.7-6.0) L 01/01/25 21: Hgb 13.4 g/dL (13.5-18.0) L 01/01/25 21: Hct 39.2 % (42.0-54.0) L 01/01/25 21: MCV 85.0 fL (80.0-100.0) 01/01/25: MCH 29.0 pg (27.0-34.0) 01/01/25: MCHC 34.1 g/dL (33.0-35.0) 01/01/25: RDW 13.5 % (11.6-16.5) 01/01/25: Plt Count 264 X10^3/uL (150.0-450.0) 01/01/25: MPV 7.2 fL (7.4-11.0) L 01/01/25: Neut % (Auto) 86.4 % (42.0-75.0) H 01/01/25: Lymph % (Auto) 6.9 % (21.0-51.0) L 01/01/25: [place] % (Auto) 5.9 % (0.0-13.0) 01/01/25: Eos % (Auto) 0.1 % (0.9-2.9) L 01/01/25: Baso % (Auto) 0.7 % (0.2-1.0) 01/01/25: Neut # (Auto) 11.3 x10^3/uL (2.2-4.8) H 01/01/25 21: Lymph # (Auto) 0.9 X10^3/uL (1.3-2.9) L 01/01/25: [place] # (Auto) 0.8 x10^3/uL (0.3-0.8) 01/01/25 21: Eos # (Auto) 0.0 x10^3/uL (0.0-0.2) 01/01/25: Baso # (Auto) 0.1 X10^3/uL (0.0-0.1) 07/23/25 21:30 Absolute Nucleated RBC 0.0 /100WBC 01/01/25 21:30 Sodium 133 mmol/L (136-145) L 01/01/25 21:30 Corrected Sodium 134 mmol/L (136-145) L 01/01/25 21:30 Potassium 3.7 mmol/L (3.5-5.1) 01/01/25 21:30 Chloride 97 mmol/L (98-107) L 01/01/25 21:30 Carbon Dioxide 25.5 mmol/L (21-32) 01/01/25 21:30 BUN 12 mg/dL (7-18) 01/01/25 21:30 Creatinine 0.88 mg/dL (0.70-1.30) 01/01/25 21:30 Est GFR (MDRD) Af Amer > 60 (>60) 01/01/25 21:30 Est GFR (MDRD) Non-Af > 60 (>60) 01/01/25 21:30 Glucose 151 mg/dL (65-99) H 01/01/25 21:30 Lactic Acid 1.4 mmol/L (0.4-2.0) 01/01/25 23: Calcium 8.2 mg/dL (8.5-10.1) L 01/01/25 21:30 Corrected Calcium 8.8 mg/dL (8.5-10.1) 01/01/25 21:30 Total Bilirubin 1.60 mg/dL (0.2-1.0) H 01/01/25 21:30 AST 18 Units/L (15-37) 01/01/25 21:30 ALT 33 Units/L (12-78) 01/01/25 21:30 Alkaline Phosphatase 75 Units/L (46-116) 01/01/25 21:30 Creatine Kinase 52 Units/L (39-308) 01/01/25 21:30 Troponin I High Sens 18.7 ng/L (4.0-60.0) 01/01/25 23:33 B-Natriuretic Peptide 35.4 pg/mL (0-79) 01/01/25 21:30 Total Protein 6.9 g/dL (6.4-8.2) 01/01/25 21:30 Albumin 3.2 g/dL (3.4-5.0) L 01/01/25 21:30 Globulin 3.7 g/dL (2.5-4.5) 01/01/25 21:30 Albumin/Globulin Ratio 0.9 Ratio (1.1-2.1) L 01/01/25 21:30 Specimen Type Clean catch urine 01/01/25 23:21 Urine Color Yellow (YELLOW) 01/01/25 23:21 Urine Appearance Clear (CLEAR) 01/01/25 23:21 Urine pH 6.0 (5.0 - 8.0) 01/01/25 23:21 Ur Specific [place] 1.015 (1.000-1.030) 01/01/25 23:21 Urine Protein 3+ (NEGATIVE) 01/01/25 23:21 Urine Glucose (UA) Negative (NEGATIVE) 01/01/25 23:21 Urine Ketones Negative (NEGATIVE) 01/01/25 23:21 Urine Blood 1+ (NEGATIVE) 01/01/25 23:21 Urine Nitrite Negative (NEGATIVE) 01/01/25 23:21 Urine Bilirubin Negative (NEGATIVE) 01/01/25 23:21 Urine Urobilinogen Normal (NORMAL) 01/01/25 23:21 Ur Leukocyte Esterase Negative (NEGATIVE) 01/01/25 23:21 Urine RBC 0-2 /HPF (0-3) 01/01/25 23:21 Urine WBC 0-2 /HPF (0-5) 01/01/25 23:21 Ur Squamous Epith Cells Rare /HPF (NEGATIVE) 01/01/25 23:21 Urine Bacteria Negative /HPF (NEGATIVE) 01/01/25 23:21 Ur Culture Indicated? No/not indicated 01/01/25 23:21 SARS-CoV-2 (PCR) Negative (NEGATIVE) 01/01/25 21:22 Influenza Type A (PCR) Negative (NEGATIVE) 01/01/25 21:22 Influenza Type B (PCR) Negative (NEGATIVE) 01/01/25 21:22 RSV (PCR) Negative (NEGATIVE) 01/01/25 21:22 Opioid Opioid Risk Tool Age (Gopal box if 16-45): No History of Preadolescent Sexual Abuse: No Total: 0 Total Score Risk Category: Low Risk Copyright: Deejay REY predicting aberrant behaviors Discharge Plan Diagnosis Discharge Problem: Elevated lactic acid level, Abdominal pain, Shortness of breath Discharge Plan Patient Disposition: 09 ADMITTED INPATIENT Condition: Stable Prescriptions: No Action atorvastatin [Lipitor] 40 mg tablet 40 mg PO QHS 90 Days Qty: 90 0RF lisinopril 40 mg tablet 40 mg PO DAILY 30 Days Qty: 30 3RF furosemide 40 mg tablet 40 mg PO QDAY 30 Days Qty: 30 3RF amlodipine 10 mg tablet 10 mg PO DAILY metformin 500 mg tablet extended release 24 hr 1,000 mg PO BID Qty: 120 4RF meloxicam 15 mg tablet 15 mg PO QDAY potassium chloride 10 mEq tablet extended release 10 meq PO QDAY tamsulosin 0.4 mg capsule 0.4 mg PO DAILY albuterol sulfate 90 mcg/actuation HFA aerosol inhaler 2 puff inhalation Q4-6H PRN pioglitazone [Actos] 45 mg tablet 45 mg PO DAILY Health Concerns: Post Hospitalization: new medications and changes needed to prevent readmission or further decline. Pt educated and given instructions on all concerns. Plan of Treatment: Continue with present treatment and follow up plan. Pt is to keep follow up appointment as instructed and take medications as ordered. Orders to Discharge Patient Discharge Orders: Transfer (Routine); Ordered 01/02/25 Ordered By: Bakari Monory Follow ups/Referrals Follow ups/Referrals: AMANDA ALTAMIRANO [STAFF PHYSICIAN, MEDICAL] - 3 days Instructions Stand Alone Forms: Find Help Web Site, Post Hospital Follow Up Care Print Language: CITIZEN OF [place]
[2025-01-02] MEDS ORDERED: TYLENOL 325 MG TAB PO PRN (02:32)
[2025-01-02] MEDS ORDERED: NS 250 ML IV 25 ML IV PRN (02:32)
[2025-01-02] MEDS ORDERED: ULTRAM PO PRN (02:32)
[2025-01-02 03:36] VITALS: BMI 50.5
[2025-01-02 05:00] LABS: MEAN PLATELET VOLUME 7.6 fL (7.4-11.0); RED CELL DISTRIBUTION WIDTH 13.6 % (11.6-16.5)
[2025-01-02 05:15] LABS: COR CA(FOR HYPOALB) 8.9 mg/dL (8.5-10.1); COR NA(FOR HYPERGLY) 140 mmol/L (136-145); CREATININE 0.99 mg/dL (0.70-1.30); eGFR NON BLACK RACES > 60 (>60)
[2025-01-02] MEDS: NS 1,000 ML IV 1,000 ML ONE (07:21)
[2025-01-02] MEDS: NS 100 ML IV 100 ML ONE (07:22)
[2025-01-02] MEDS: ZOSYN VIAL 3.375 GRAMS IV ONE (07:23)
[2025-01-02] MEDS: TORADOL 30 MG VIAL ONE (07:23)
[2025-01-02] MEDS: PHARMACY CONSULT - VANCOMYCIN XX SCH (07:25)
[2025-01-02] MEDS ORDERED: CONSULT PHARMACY - POTASSIUM & MAGNESIUM XX SCH (08:00)
--- NOTE | 2025-01-02 08:29 | DR.H&P ---
H&P History & Physical for Day of: H&P Date: 01/02/25 Chief Complaint Chief Complaint: abdominal pain, sob History of Present Illness History of Present Illness: Patient states she had some shortness of breath, swelling, chills and abdominal pain for 2 days. Patient states he trying to get scheduled for surgery to fix his abdominal hernia. Patient states he has had multiple repairs. Patient states he had sharp pain in his left wrist but has resolved completely by now. Patient states he did not injure it in any way and it has resolved at this time. Past Medical History Past Medical History: Anxiety, CHF, Diabetes, Dyslipidemia and Hypertension Past Surgical History Surgical History: Abdominal Surgery and Other Family History Family Medical History: Diabetes Mellitus, [place], Coronary Artery Disease and Hypertension Social History Type of Tobacco Use: None Does any household member use tobacco: No Alcohol Use: None Drug Use: None Medications Home Medications: Home Medications Medication Instructions Recorded Confirmed Type amlodipine 10 mg tablet 10 mg PO DAILY 06/10/2412/11 History albuterol sulfate 90 mcg/actuation 2 puff inhalation Q 4-6H PRN 01/01/25 01/01/25 History aerosol inhaler meloxicam 15 mg tablet 15 mg PO QDAY 01/01/2501/01 History pioglitazone 45 mg tablet (Actos) 45 mg PO DAILY 01/0101/01/25 History potassium chloride 10 mEq 10 meq PO QDAY 01/01/2512/11 History tablet,extended release tamsulosin 0.4 mg capsule 0.4 mg PO DAILY 01/01/25 History Allergies Allergies Allergy/AdvReac Type Severity Reaction Status Date / Time No Known Drug Allergies Allergy Verified 01/02/25 02:09 Labs 01/02/25 04:30 01/02/25 04:30 Labs: Laboratory WBC 12.3 X10^3/uL (3.6-10.0) H 01/02/25 04:30 RBC 4.18 X10^6/uL (4.7-6.0) L 01/02/25 04:30 Hgb 12.6 g/dL (13.5-18.0) L 01/02/25 04:30 Hct 35.7 % (42.0-54.0) L 01/02/25 04:30 MCV 85.3 fL (80.0-100.0) 01/02/25 04:30 MCH 30.0 pg (27.0-34.0) 01/02/25 04:30 MCHC 35.2 g/dL (33.0-35.0) H 01/02/25 04:30 RDW 13.6 % (11.6-16.5) 01/02/25 04:30 Plt Count 270 X10^3/uL (150.0-450.0) 01/02/25 04:30 MPV 7.6 fL (7.4-11.0) 01/02/25 04:30 Neut % (Auto) 84.9 % (42.0-75.0) H 01/02/25 04:30 Lymph % (Auto) 8.9 % (21.0-51.0) L 01/02/25 04:30 [place] % (Auto) 5.7 % (0.0-13.0) 01/02/25 04:30 Eos % (Auto) 0.2 % (0.9-2.9) L 01/02/25 04:30 Baso % (Auto) 0.3 % (0.2-1.0) 01/02/25 04:30 Neut # (Auto) 10.5 x10^3/uL (2.2-4.8) H 01/02/25 04:30 Lymph # (Auto) 1.1 X10^3/uL (1.3-2.9) L 01/02/25 04:30 [place] # (Auto) 0.7 x10^3/uL (0.3-0.8) 01/02/25 04:30 Eos # (Auto) 0.0 x10^3/uL (0.0-0.2) 01/02/25 04:30 Baso # (Auto) 0.0 X10^3/uL (0.0-0.1) 01/02/25 04:30 Absolute Nucleated RBC 0.0 /100WBC 01/02/25 04:30 Sodium 137 mmol/L (136-145) 01/02/25 04:30 Corrected Sodium 140 mmol/L (136-145) 01/02/25 04:30 Potassium 3.2 mmol/L (3.5-5.1) L 01/02/25 04:30 Chloride 101 mmol/L (98-107) 01/02/25 04:30 Carbon Dioxide 26.7 mmol/L (21-32) 01/02/25 04:30 BUN 12 mg/dL (7-18) 01/02/25 04:30 Creatinine 0.99 mg/dL (0.70-1.30) 01/02/25 04:30 Est GFR (MDRD) Af Amer > 60 (>60) 01/02/25 04:30 Est GFR (MDRD) Non-Af > 60 (>60) 01/02/25 04:30 Glucose 233 mg/dL (65-99) H 01/02/25 04:30 POC Glucose (mg/dL) 178 mg/dL (65-99) H 01/02/25 05:40 Lactic Acid 1.4 mmol/L (0.4-2.0) 01/01/25 23:33 Calcium 7.9 mg/dL (8.5-10.1) L 01/02/25 04:30 Corrected Calcium 8.9 mg/dL (8.5-10.1) 01/02/25 04:30 Magnesium 1.3 mg/dL (2.0-2.9) L 01/02/25 04:30 Total Bilirubin 1.50 mg/dL (0.2-1.0) H 01/02/25 04:30 AST 16 Units/L (15-37) 01/02/25 04:30 ALT 28 Units/L (12-78) 01/02/25 04:30 Alkaline Phosphatase 68 Units/L (46-116) 01/02/25 04:30 Creatine Kinase 52 Units/L (39-308) 01/01/25 21:30 Troponin I High Sens 18.7 ng/L (4.0-60.0) 01/01/25 23:33 B-Natriuretic Peptide 35.4 pg/mL (0-79) 01/01/25 21:30 Total Protein 6.2 g/dL (6.4-8.2) L 01/02/25 04:30 Albumin 2.7 g/dL (3.4-5.0) L 01/02/25 04:30 Globulin 3.5 g/dL (2.5-4.5) 01/02/25 04:30 Albumin/Globulin Ratio 0.8 Ratio (1.1-2.1) L 01/02/25 04:30 Specimen Type Clean catch urine 01/01/25 23:21 Urine Color Yellow (YELLOW) 01/01/25 23:21 Urine Appearance Clear (CLEAR) 01/01/25 23:21 Urine pH 6.0 (5.0 - 8.0) 01/01/25 23:21 Ur Specific [place] 1.015 (1.000-1.030) 01/01/25 23:21 Urine Protein 3+ (NEGATIVE) 01/01/25 23:21 Urine Glucose (UA) Negative (NEGATIVE) 01/01/25 23:21 Urine Ketones Negative (NEGATIVE) 01/01/25 23:21 Urine Blood 1+ (NEGATIVE) 01/01/25 23:21 Urine Nitrite Negative (NEGATIVE) 01/01/25 23:21 Urine Bilirubin Negative (NEGATIVE) 01/01/25 23:21 Urine Urobilinogen Normal (NORMAL) 01/01/25 23:21 Ur Leukocyte Esterase Negative (NEGATIVE) 01/01/25 23:21 Urine RBC 0-2 /HPF (0-3) 01/01/25 23:21 Urine WBC 0-2 /HPF (0-5) 01/01/25 23:21 Ur Squamous Epith Cells Rare /HPF (NEGATIVE) 01/01/25 23:21 Urine Bacteria Negative /HPF (NEGATIVE) 01/01/25 23:21 Ur Culture Indicated? No/not indicated 01/01/25 23:21 SARS-CoV-2 (PCR) Negative (NEGATIVE) 01/01/25 21:22 Influenza Type A (PCR) Negative (NEGATIVE) 01/01/25 21:22 Influenza Type B (PCR) Negative (NEGATIVE) 01/01/25 21:22 RSV (PCR) Negative (NEGATIVE) 01/01/25 21:22 Review of Systems Constitutional: Sweats Eyes: No Symptoms Reported ENT: No Symptoms Reported Respiratory: SOB with Excertion Cardiovascular: Orthopnea Gastrointestinal: Abdominal Pain Genitourinary: No Symptoms Reported Musculoskeletal: Back Pain Skin: No Symptoms Reported Neurological: No Symptoms Reported Physical Exam Vital Signs: Vital Signs Temperature 98.4 F Temperature 98.9 F Temperature 98.9 F Temperature 98.9 F Pulse Rate [Right] 91 Pulse Rate [Right] 92 Pulse Rate 97 Pulse Rate 91 Pulse Rate 108 Pulse Rate 106 Pulse Rate 106 Pulse Rate 108 Pulse Rate 109 Pulse Rate 114 Pulse Rate 109 Pulse Rate 104 Pulse Rate 105 Respiratory Rate 22 Respiratory Rate 19 Respiratory Rate 19 Respiratory Rate 20 Respiratory Rate 17 Respiratory Rate 32 Respiratory Rate 28 Respiratory Rate 23 Respiratory Rate 24 Respiratory Rate 24 Respiratory Rate 29 Respiratory Rate 27 Respiratory Rate 21 Respiratory Rate 21 Blood Pressure [Right Arm] 145/66 Blood Pressure [Right Arm] 127/64 Blood Pressure 140/65 Blood Pressure 148/66 Blood Pressure 128/63 Blood Pressure 136/73 O2 Sat by Pulse Oximetry 95 O2 Sat by Pulse Oximetry 93 O2 Sat by Pulse Oximetry 93 O2 Sat by Pulse Oximetry 92 Oriented: Normal Eyes: Normal Ear: Normal Nose: Normal Respiratory: Wheezes Throughout Cardiovascular: Tachycardia and Edema Auscultation: Bowel Sounds: Normal Palpation: Other (diffuse distention, central abdominal hernia) Tenderness: Diffuse Skin: Diaphoresis Musculoskeletal: Back:Lumbar Psychiatric: Anxiety Mood Description: Anxious Affect: Anxious Speech Pattern: Clear and Appropriate Assessment/Plan (1) Shortness of breath: Status: Acute Plan: admit, resp consult cardiac monitoring repeat lactic acid, ct abd and chest in er bp control, bs control iv atbx and blood cultures (2) Elevated lactic acid level: Status: Acute (3) Incisional hernia of anterior abdominal wall without obstruction or gangrene: Status: Acute (4) Hypertension: Status: Acute (5) Diabetes mellitus: Status: Acute
[2025-01-02] MEDS: ZESTRIL TAB 40 MG PO SCH (09:18)
[2025-01-02] MEDS: NORVASC TAB 10 MG PO SCH (09:18)
[2025-01-02] MEDS: LASIX PO SCH (09:19)
[2025-01-02] MEDS: VANCOMYCIN IV *PREMIX 2 G/400 ML BAG 2 G/400 ML PIGGYBACK IV SCH (09:19)
[2025-01-02] MEDS: FLOMAX PO SCH (09:35)
[2025-01-02] MEDS ORDERED: K-DUR TAB 20 MEQ PO SCH (10:00)
[2025-01-02] MEDS: CONSULT PHARMACY - POTASSIUM & MAGNESIUM XX SCH (10:37)
[2025-01-02] MEDS: MAG-OX TAB PO SCH (10:37)
[2025-01-02] MEDS: ZOSYN VIAL 3.375 GRAMS 3.375 G in NS 100 ML IV 100 ML IV SCH ×2 (10:38→11:33)
[2025-01-02] MEDS: KLOR-CON 10 MEQ TAB PO SCH (10:38)
[2025-01-02] MEDS: K-DUR TAB 20 MEQ PO SCH (10:39)
[2025-01-02] MEDS: MAGNESIUM SULFATE IV ONE (11:33)
[2025-01-02] MEDS: [UNRECOGNIZED DRUG - OTHER] IV ONE (11:33)
[2025-01-02] MEDS: NS 250 ML IV 25 ML IV PRN (11:33)
[2025-01-02] MEDS: POTASSIUM CHLORIDE IV ONE (11:33)
[2025-01-02 14:40] LABS: ABG BASE EXCESS 1.7 mmol/L (-2.0-2.0); ABG HCO3 26.6 mmol/L (22-26); ABG OXYGEN SATURATION 91.0 % (90-100); ABG PCO2 42.0 mmHg (35.0-45.0); ABG PH 7.410 (7.35-7.45); ABG PO2 61.0 mmHg (80.0-100.0)
[2025-01-02] MEDS: OMNIPAQUE 350 mg/mL 100 mL BTL 100 ML ONE (18:29)
[2025-01-02] MEDS: READI-CAT 2 ONE (18:30)
--- NOTE | 2025-01-02 20:13 | CT ---
EXAM: CT ABDOMEN AND PELVIS WITH CONTRAST HISTORY: Abdominal pain COMPARISON: January 01, 2025 TECHNIQUE: Axial images were acquired of the abdomen and pelvis with IV contrast. Sagittal and coronal reformatted images were provided. All images were reviewed in a variety of windows and levels. RADIATION REDUCTION TECHNIQUE: Automated exposure control, adjustment of the mA and/or kV according to patient size, or iterative reconstruction techniques were used. FINDINGS: LOWER THORAX: The visualized lower lung zones are clear. The heart size is within normal limits. There is no evidence of a pericardial effusion. LIVER: No intrahepatic focal lesions are seen. No evidence of intrahepatic or extrahepatic duct dilation. Please note that the dome of the liver is not entirely in the field of view. Therefore this portion of the liver is not assessed on this examination. GALLBLADDER: The gallbladder is unremarkable. SPLEEN: The spleen enhances homogenously and is unremarkable. PANCREAS: The pancreas enhances homogenously and is unremarkable. ADRENAL GLANDS: Stable right adrenal nodule is seen measuring 3 cm. This is incompletely characterized but is statistically most likely represents a benign adrenal adenoma. : The kidneys enhance homogenously. Their collecting system is of normal caliber.Right-sided nonobstructing nephrolithiasis is noted. URINARY BLADDER: The urinary bladder is unremarkable. There are no soft tissue masses seen in the urinary bladder. VESSELS: The abdominal aorta is normal in size without evidence of aneurysm or dissection. The celiac artery, superior mesenteric artery, upper [place] renal arteries, and inferior mesenteric artery are patent. GI: The stomach and small bowel is unremarkable. There is a prominent anterior abdominal hernia which contains omentum and bowel without evidence of incarceration or strangulation. There is no evidence of bowel obstruction. There are no inflammatory changes seen in the right lower quadrant to suggest secondary signs of acute appendicitis. The appendix is not identified on this examination. Moderate fecal load with flatulence is noted. LYMPHNODES AND MESENTERY: There is no evidence of retroperitoneal lymphadenopathy. BONES: The visualized bones demonstrate degenerative changes. There are no concerning lytic or blastic lesions identified. IMPRESSION: 1. Stable right adrenal nodule is seen measuring 3 cm. This is incompletely characterized but is statistically most likely represents a benign adrenal adenoma. 2. There is a prominent anterior abdominal hernia which contains omentum and bowel without evidence of incarceration or strangulation. 3. There is no evidence of bowel obstruction 4. Moderate fecal load with flatulence is noted. 5. Right-sided nonobstructing nephrolithiasis is noted. Please note this was not present on the prior examination. THIS IS AN ELECTRONICALLY VERIFIED FINAL REPORT 01/02/2025 8:09 PM - Electronically signed by [place] MD
[2025-01-02] MEDS: LIPITOR TAB 40 MG PO SCH (20:24)
[2025-01-02] MEDS: MORPHINE SULFATE INJ 2 MG INJ IVP PRN (20:24)
[2025-01-02] MEDS: SNACK - Diabetic Appropriate PO SCH (20:26)
[2025-01-02] MEDS: NovoLIN R (or HumuLIN R) SUBCUT PRN (20:28)
[2025-01-02 23:59] LABS: CRYPTOSPORIDIUM PARVUM ANTIGEN NEGATIVE (NEGATIVE); GIARDIA LAMBLIA ANTIGEN NEGATIVE (NEGATIVE)
[2025-01-03 05:00] VITALS: RESP 20; O2SAT 98
[2025-01-03 05:32] LABS: MEAN PLATELET VOLUME 7.9 fL (7.4-11.0); RED CELL DISTRIBUTION WIDTH 13.9 % (11.6-16.5)
[2025-01-03 05:41] LABS: COR CA(FOR HYPOALB) 9.3 mg/dL (8.5-10.1); COR NA(FOR HYPERGLY) 142 mmol/L (136-145); CREATININE 0.74 mg/dL (0.70-1.30); eGFR NON BLACK RACES > 60 (>60)
[2025-01-03] MEDS ORDERED: CONSULT PHARMACY - POTASSIUM & MAGNESIUM XX SCH (07:00)
[2025-01-03] MEDS: PHARMACY COMMENT IV ONE (08:07)
[2025-01-03] MEDS: LASIX IVP ONE (08:32)
[2025-01-03] MEDS: MAG-OX TAB PO SCH (08:32)
[2025-01-03] MEDS: K-DUR TAB 20 MEQ PO SCH (08:33)
[2025-01-03] MEDS: PROVENTIL NEB TX 0.083% 2.5MG/ 3ML NEB PRN (08:37)
[2025-01-03] MEDS: LASIX ONE (08:40)
[2025-01-03] MEDS: K-DUR TAB 20 MEQ PO ONE (08:40)
[2025-01-03] MEDS: TORADOL 30 MG VIAL IM NR (09:19)
[2025-01-03 09:53] VITALS: PULSE 85
[2025-01-03 10:14] VITALS: BP 146/72; TEMP 98.2
[2025-01-03] MEDS: TORADOL 30 MG VIAL IVP ONE (10:15)
== END 2025-01-03 10:00 | disposition home or self-care (01) ==
LOC: SUPCPDRO → ICU 21:08 → ER 21:08 → ICU 01-02 02:38
PROVIDERS: ADMIT Internal Medicine; ATTEND Internal Medicine
DX: M25.532 Pain in left wrist; F15.90 Other stimulant use, unspecified, uncomplicated; N20.0 Calculus of kidney; E83.51 Hypocalcemia; R06.02 Shortness of breath; R00.0 Tachycardia, unspecified; K66.0 Peritoneal adhesions (postprocedural) (postinfection); E80.6 Other disorders of bilirubin metabolism; E66.01 Morbid (severe) obesity due to excess calories; Z68.43 Body mass index [BMI] 50.0-59.9, adult; J44.9 Chronic obstructive pulmonary disease, unspecified; E87.1 Hypo-osmolality and hyponatremia; E83.42 Hypomagnesemia; R10.84 Generalized abdominal pain; Z86.79 Personal history of other diseases of the circulatory system; Z59.86 Financial insecurity; E87.6 Hypokalemia; K45.8 Other specified abdominal hernia without obstruction or gangrene; E11.65 Type 2 diabetes mellitus with hyperglycemia; E27.8 Other specified disorders of adrenal gland; R94.31 Abnormal electrocardiogram [ECG] [EKG]; Z03.818 Encounter for observation for suspected exposure to other biological agents ruled out; F41.8 Other specified anxiety disorders